=== PATIENT | female | born 1985 | race Caucasian/White ===

== ENCOUNTER 2019-12-30 12:06 | Outpatient (REF) | payer OTHER, SELFPAY ==
[2019-12-30 13:41] LABS: MANUAL DIFF FLAG NO
[2019-12-30 13:57] LABS: Basophils Absolute Auto 0.1 X10*3/uL (0.0-0.2); Basophils Percent Auto 0.5 % (0-2); Eosinophils Absolute Auto 0.2 X10*3/uL (0.0-0.4); Eosinophils Percent Auto 2.1 % (0-4); Hematocrit 38.7 % (37-47); Hemoglobin 12.6 g/dl (12.0-16.0); Imm Gran Abs Auto 0.03 X10*3/uL (0.00-0.03); Imm Gran Pct Auto 0.3 % (0.0-0.4); Lymphocytes Absolute Auto 2.9 X10*3/uL (1.2-4.9); Mean Corpuscular HGB Conc 32.6 g/dl (31.0-35.0); Mean Corpuscular Hemoglobin 28.5 pg (27.0-33.0); Mean Corpuscular Volume 87.6 fL (80-98); Mean Platelet Volume 12.3 fL (9.4-12.3); Monocytes Absolute Auto 0.6 X10*3/uL (0.1-1.2); Monocytes Percent Auto 6.1 % (2-11); Neutrophils Absolute Auto 6.4 X10*3/uL (2.0-8.3); Platelet Count 243 X10*3/uL (160-400); Red Blood Count 4.42 X10*6/uL (4.20-5.50); White Blood Count 10.2 X10*3/uL (4.8-10.8)
[2019-12-30 14:14] LABS: Estimated Average Glucose 128 mg/dL; Hemoglobin A1c % 6.1 %
[2019-12-30 14:24] LABS: Anion Gap 15 (12-20); Blood Urea Nitrogen 17 mg/dL (9-16); Calcium 8.6 mg/dL (8.4-10.2); Carbon Dioxide 25 mmol/L (22-29); Chloride 105 mmol/L (96-108); Estimated Glomerular Filt Rate > 60; Glucose Random 111 mg/dL (60-115); Potassium 4.8 mmol/l (3.3-5.1); Sodium 140 mmol/L (135-145)
== END 2019-12-30 12:07 | disposition home or self-care (01) ==
LOC: HO.HMGCLDS 12:06
PROVIDERS: PCP Internal Medicine; Visit Provider Internal Medicine
DX: J45.909 Unspecified asthma, uncomplicated (principal); E66.9 Obesity, unspecified; I10 Essential (primary) hypertension
CPT/HCPCS: 36415; 80048; 83036; 85025

== ENCOUNTER 2020-04-20 16:28 | Outpatient (REF) | payer OTHER, SELFPAY | END 2020-04-20 16:29 | disposition home or self-care (01) | LOC: HO.LNP 16:28 | PROVIDERS: Visit Provider Hospitalist | DX: J45.21 Mild intermittent asthma with (acute) exacerbation (principal); Z20.822 Contact with and (suspected) exposure to COVID-19 | CPT/HCPCS: U0003; U0005 ==

== ENCOUNTER 2020-06-04 13:58 | Outpatient (REF) | payer OTHER, SELFPAY ==
--- NOTE | ~2020-06-04 | XR_ITS ---
EXAMINATION: XR CHEST CLINICAL INFORMATION: Shortness of breath COMPARISON: None TECHNIQUE: 2 views of the chest were obtained. FINDINGS: The lungs are well expanded. There is no focal consolidation, edema, or effusion. No pneumothorax. The cardiomediastinal silhouette is within normal limits. No acute osseous abnormality. XR/XR chest 2V IMPRESSION: Clear lungs.
== END 2020-06-04 13:59 | disposition home or self-care (01) ==
LOC: HO.HMGCX 13:58
PROVIDERS: PCP Internal Medicine; Visit Provider Hospitalist
DX: R06.02 Shortness of breath (principal)
CPT/HCPCS: 71046

== ENCOUNTER 2020-06-19 13:20 | Outpatient (REF) | payer OTHER, SELFPAY ==
[2020-06-19 14:22] LABS: Estimated Average Glucose 163 mg/dL; Hemoglobin A1c % 7.3 %
[2020-06-19 14:38] LABS: Alanine Aminotransferase 23 U/L (0-31); Albumin Level 4.1 g/dL (3.5-5.0); Alkaline Phosphatase 63 U/L (39-117); Anion Gap 16 (12-20); Aspartate Amino Transferase 12 U/L (5-31); Bilirubin Direct 0.2 mg/dL (0.0-0.5); Bilirubin Total 0.6 mg/dL (0.0-1.0); Blood Urea Nitrogen 18 mg/dL (9-16); Calcium 9.9 mg/dL (8.4-10.2); Carbon Dioxide 26 mmol/L (22-29); Chloride 103 mmol/L (96-108); Estimated Glomerular Filt Rate > 60; Glucose Random 175 mg/dL (60-115); Sodium 140 mmol/L (135-145); Total Protein 7.2 g/dL (6.5-8.0)
[2020-06-19 15:00] LABS: Creatinine Urine 76.83 mg/dL; Microalbum/Creatinine Ratio Ur 6.5 ug/mg cr
== END 2020-06-19 13:21 | disposition home or self-care (01) ==
LOC: HO.HMGCLDS 13:20
PROVIDERS: PCP Internal Medicine; Visit Provider Internal Medicine
DX: L70.9 Acne, unspecified (principal); R73.03 Prediabetes; J45.909 Unspecified asthma, uncomplicated; I10 Essential (primary) hypertension; E66.9 Obesity, unspecified
CPT/HCPCS: 36415; 80053; 80076; 82043; 82248; 83036

== ENCOUNTER 2020-09-18 12:25 | Outpatient (REF) | payer OTHER, SELFPAY ==
[2020-09-18 13:45] LABS: MANUAL DIFF FLAG NO
[2020-09-18 13:49] LABS: Basophils Absolute Auto 0.1 X10*3/uL (0.0-0.2); Basophils Percent Auto 0.5 % (0-2); Eosinophils Absolute Auto 0.2 X10*3/uL (0.0-0.4); Eosinophils Percent Auto 1.9 % (0-4); Hematocrit 39.7 % (37-47); Imm Gran Abs Auto 0.03 X10*3/uL (0.00-0.03); Imm Gran Pct Auto 0.3 % (0.0-0.4); Lymphocytes Absolute Auto 3.4 X10*3/uL (1.2-4.9); Lymphocytes Percent Auto 32.7 % (20-40); Mean Corpuscular HGB Conc 32.7 g/dl (31.0-35.0); Mean Corpuscular Hemoglobin 28.1 pg (27.0-33.0); Mean Corpuscular Volume 85.7 fL (80-98); Mean Platelet Volume 11.9 fL (9.4-12.3); Monocytes Absolute Auto 0.7 X10*3/uL (0.1-1.2); Monocytes Percent Auto 6.7 % (2-11); Neutrophils Percent Auto 57.9 % (45-73); Platelet Count 293 X10*3/uL (160-400); Red Blood Count 4.63 X10*6/uL (4.20-5.50); Red Cell Distribution Width 12.5 % (11.0-16.0); White Blood Count 10.3 X10*3/uL (4.8-10.8)
[2020-09-18 14:04] LABS: Estimated Average Glucose 148 mg/dL; Hemoglobin A1c % 6.8 %
[2020-09-18 14:08] LABS: Alanine Aminotransferase 20 U/L (0-31); Alkaline Phosphatase 65 U/L (39-117); Anion Gap 15 (12-20); Aspartate Amino Transferase 14 U/L (5-31); Bilirubin Total 0.7 mg/dL (0.0-1.0); Blood Urea Nitrogen 12 mg/dL (9-16); Calcium 9.7 mg/dL (8.4-10.2); Carbon Dioxide 26 mmol/L (22-29); Chloride 103 mmol/L (96-108); Estimated Glomerular Filt Rate > 60; Glucose Random 118 mg/dL (60-115); Potassium 4.7 mmol/L (3.3-5.1); Sodium 139 mmol/L (135-145); Total Protein 7.3 g/dL (6.5-8.0)
[2020-09-19 11:09] LABS: LDL Cholesterol Direct 158 mg/dL (<100)
== END 2020-09-18 12:26 | disposition home or self-care (01) ==
LOC: HO.HMGCLDS 12:25
PROVIDERS: PCP Internal Medicine; Visit Provider Internal Medicine
DX: Z00.01 Encounter for general adult medical examination with abnormal findings (principal); I10 Essential (primary) hypertension; L70.9 Acne, unspecified; J45.909 Unspecified asthma, uncomplicated; R73.03 Prediabetes; E66.9 Obesity, unspecified
CPT/HCPCS: 36415; 80053; 83036; 83721; 85025

== ENCOUNTER 2020-11-16 13:38 | Outpatient (REF) | payer OTHER, SELFPAY ==
[2020-11-21 22:03] LABS: HPV mRNA E6/E7 rflx Not Detected (Not Detected)
== END 2020-11-16 13:39 | disposition home or self-care (01) ==
LOC: HO.LAB 13:38
PROVIDERS: Visit Provider Advanced Practice Midwife
DX: Z01.419 Encounter for gynecological examination (general) (routine) without abnormal findings (principal); E66.9 Obesity, unspecified; L70.9 Acne, unspecified; Z86.16 Personal history of COVID-19; Z68.43 Body mass index [BMI] 50.0-59.9, adult
CPT/HCPCS: 87624; 88142

== ENCOUNTER 2020-11-22 14:06 | Outpatient (REF) | payer OTHER, SELFPAY | END 2020-11-22 14:07 | disposition home or self-care (01) | LOC: HO.LNP 14:06 | PROVIDERS: Visit Provider Physician Assistant Medical | DX: Z20.822 Contact with and (suspected) exposure to COVID-19 (principal); J02.9 Acute pharyngitis, unspecified | CPT/HCPCS: 87071; U0003; U0005 ==

== ENCOUNTER 2021-01-22 12:17 | Outpatient (REF) | payer OTHER, SELFPAY ==
[2021-01-22 13:49] LABS: MANUAL DIFF FLAG NO
[2021-01-22 14:01] LABS: Basophils Percent Auto 0.4 % (0-2); Eosinophils Absolute Auto 0.2 X10*3/uL (0.0-0.4); Hematocrit 38.6 % (37.0-47.0); Hemoglobin 12.6 g/dl (12.0-16.0); Imm Gran Abs Auto 0.03 X10*3/uL (0.00-0.03); Imm Gran Pct Auto 0.3 % (0.0-0.4); Lymphocytes Absolute Auto 2.8 X10*3/uL (1.2-4.9); Lymphocytes Percent Auto 28.3 % (20-40); Mean Corpuscular HGB Conc 32.6 g/dl (31.0-35.0); Mean Corpuscular Hemoglobin 27.8 pg (27.0-33.0); Mean Corpuscular Volume 85.2 fL (80.0-98.0); Mean Platelet Volume 12.3 fL (9.4-12.3); Monocytes Absolute Auto 0.7 X10*3/uL (0.1-1.2); Monocytes Percent Auto 6.7 % (2-11); Neutrophils Absolute Auto 6.2 x10*3/uL (2.0-8.3); Neutrophils Percent Auto 62.3 % (45-73); Platelet Count 248 X10*3/uL (160-400); Red Blood Count 4.53 X10*6/uL (4.20-5.50)
[2021-01-22 14:16] LABS: Estimated Average Glucose 140 mg/dL; Hemoglobin A1c % 6.5 %
[2021-01-22 14:25] LABS: Alanine Aminotransferase 22 U/L (0-31); Alkaline Phosphatase 66 U/L (39-117); Anion Gap 14 (12-20); Aspartate Amino Transferase 12 U/L (5-31); Bilirubin Total 0.4 mg/dL (0.0-1.0); Blood Urea Nitrogen 14 mg/dL (9-16); Calcium 9.5 mg/dL (8.4-10.2); Carbon Dioxide 25 mmol/L (22-29); Chloride 106 mmol/L (96-108); Estimated Glomerular Filt Rate > 60; Glucose Fasting 115 mg/dL (60-99); Potassium 4.7 mmol/L (3.3-5.1); Sodium 140 mmol/L (135-145); Total Protein 7.4 g/dL (6.5-8.0)
[2021-01-22 14:37] LABS: Creatinine Urine 66.42 mg/dL; Microalbumin Urine < 5.0 mg/L
== END 2021-01-22 12:18 | disposition home or self-care (01) ==
LOC: HO.HMGCLDS 12:17
PROVIDERS: Visit Provider Internal Medicine
DX: Z00.01 Encounter for general adult medical examination with abnormal findings (principal); E66.01 Morbid (severe) obesity due to excess calories; E13.9 Other specified diabetes mellitus without complications; L70.9 Acne, unspecified; I10 Essential (primary) hypertension; J45.40 Moderate persistent asthma, uncomplicated
CPT/HCPCS: 36415; 80048; 80053; 82043; 83036; 85025

== ENCOUNTER → 2021-05-10 13:52 | Outpatient (BNVA) | payer OTHER, SELFPAY | PROVIDERS: PCP Internal Medicine; Visit Provider Advanced Practice Midwife | DX: Z30.41 Encounter for surveillance of contraceptive pills (principal) | CPT/HCPCS: 99212 ==

== ENCOUNTER 2021-05-29 12:17 | Outpatient (REF) | payer OTHER, SELFPAY ==
[2021-05-29 13:58] LABS: Estimated Average Glucose 143 mg/dL; Hemoglobin A1c % 6.6 %
[2021-05-29 14:02] LABS: Alanine Aminotransferase 21 U/L (0-31); Alkaline Phosphatase 68 U/L (39-117); Anion Gap 11 (12-20); Aspartate Amino Transferase 13 U/L (5-31); Bilirubin Total 0.8 mg/dL (0.0-1.0); Blood Urea Nitrogen 13 mg/dL (9-16); Calcium 9.5 mg/dL (8.4-10.2); Carbon Dioxide 29 mmol/L (22-29); Chloride 103 mmol/L (96-108); Estimated Glomerular Filt Rate > 60; Glucose Random 120 mg/dL (60-115); Potassium 4.8 mmol/L (3.3-5.1); Sodium 138 mmol/L (135-145); Total Protein 7.3 g/dL (6.5-8.0)
[2021-05-29 14:12] LABS: Creatinine Urine 62.98 mg/dL
[2021-05-29 14:30] LABS: Microalbum/Creatinine Ratio Ur 20.6 ug/mg cr
[2021-05-30 20:56] LABS: LDL Cholesterol Direct 154 mg/dL (<100)
== END 2021-05-29 12:18 | disposition home or self-care (01) ==
LOC: HO.HMGCLDS 12:17
PROVIDERS: PCP Internal Medicine; Visit Provider Internal Medicine
DX: I10 Essential (primary) hypertension (principal); E13.9 Other specified diabetes mellitus without complications; J45.40 Moderate persistent asthma, uncomplicated; E66.01 Morbid (severe) obesity due to excess calories; L70.9 Acne, unspecified
CPT/HCPCS: 36415; 80053; 82043; 83036; 83721

== ENCOUNTER 2021-09-20 12:41 | Outpatient (REF) | payer OTHER, SELFPAY ==
[2021-09-20 14:02] LABS: Estimated Average Glucose 160 mg/dL; Hemoglobin A1c % 7.2 %
[2021-09-20 14:04] LABS: Alanine Aminotransferase 23 U/L (0-31); Alkaline Phosphatase 65 U/L (39-117); Anion Gap 13 (12-20); Aspartate Amino Transferase 19 U/L (5-31); Bilirubin Total 0.7 mg/dL (0.0-1.0); Blood Urea Nitrogen 12 mg/dL (9-16); Calcium 9.3 mg/dL (8.4-10.2); Carbon Dioxide 24 mmol/L (22-29); Chloride 105 mmol/L (96-108); Estimated Glomerular Filt Rate > 60; Glucose Random 146 mg/dL (60-115); Potassium 4.3 mmol/L (3.3-5.1); Sodium 138 mmol/L (135-145); Total Protein 7.4 g/dL (6.5-8.0)
[2021-09-20 14:09] LABS: Creatinine Urine 80.87 mg/dL; Microalbumin Urine < 5.0 mg/L
== END 2021-09-20 12:42 | disposition home or self-care (01) ==
LOC: HO.HMGCLDS 12:41
PROVIDERS: PCP Internal Medicine; Visit Provider Internal Medicine
DX: Z00.01 Encounter for general adult medical examination with abnormal findings (principal); E13.9 Other specified diabetes mellitus without complications; E66.01 Morbid (severe) obesity due to excess calories; J45.40 Moderate persistent asthma, uncomplicated; I10 Essential (primary) hypertension
CPT/HCPCS: 36415; 80053; 82043; 83036

== ENCOUNTER 2021-12-20 12:01 | Outpatient (REF) | payer OTHER, SELFPAY ==
[2021-12-20 12:30] LABS: Binax Internal Control QC Valid; Binax Now Covid-19 Ag Negative (Negative)
== END 2021-12-20 12:02 | disposition home or self-care (01) ==
LOC: HO.HMGCLDS 12:01
PROVIDERS: PCP Internal Medicine; Visit Provider Internal Medicine
DX: J06.9 Acute upper respiratory infection, unspecified (principal); Z20.822 Contact with and (suspected) exposure to COVID-19
CPT/HCPCS: 87811; C9803

== ENCOUNTER 2022-01-22 10:29 | Outpatient (REF) | payer OTHER, SELFPAY ==
[2022-01-22 11:16] LABS: MANUAL DIFF FLAG NO
[2022-01-22 11:35] LABS: Basophils Absolute Auto 0.1 X10*3/uL (0.0-0.2); Basophils Percent Auto 0.6 % (0-2); Eosinophils Absolute Auto 0.4 X10*3/uL (0.0-0.4); Eosinophils Percent Auto 3.1 % (0-4); Hematocrit 39.4 % (37.0-47.0); Hemoglobin 12.7 g/dl (12.0-16.0); Imm Gran Abs Auto 0.03 X10*3/uL (0.00-0.03); Imm Gran Pct Auto 0.3 % (0.0-0.4); Lymphocytes Absolute Auto 3.3 X10*3/uL (1.2-4.9); Lymphocytes Percent Auto 28.4 % (20-40); Mean Corpuscular HGB Conc 32.2 g/dl (31.0-35.0); Mean Corpuscular Hemoglobin 27.1 pg (27.0-33.0); Mean Corpuscular Volume 84.2 fL (80.0-98.0); Mean Platelet Volume 11.9 fL (9.4-12.3); Monocytes Absolute Auto 0.8 X10*3/uL (0.1-1.2); Neutrophils Absolute Auto 7.1 x10*3/uL (2.0-8.3); Neutrophils Percent Auto 60.6 % (45-73); Platelet Count 266 X10*3/uL (160-400); Red Blood Count 4.68 X10*6/uL (4.20-5.50); Red Cell Distribution Width 13.3 % (11.0-16.0); White Blood Count 11.7 X10*3/uL (4.8-10.8)
[2022-01-22 11:46] LABS: Alanine Aminotransferase 29 U/L (0-31); Albumin Level 4.3 g/dL (3.5-5.0); Alkaline Phosphatase 87 U/L (39-117); Anion Gap 15 (12-20); Aspartate Amino Transferase 20 U/L (5-31); Bilirubin Total 0.7 mg/dL (0.0-1.0); Blood Urea Nitrogen 15 mg/dL (9-16); Calcium 9.6 mg/dL (8.4-10.2); Carbon Dioxide 28 mmol/L (22-29); Chloride 103 mmol/L (96-108); Cholesterol 170 mg/dL; Estimated Glomerular Filt Rate > 60; Glucose Fasting 163 mg/dL (60-99); HDL Cholesterol 48 mg/dL; LDL Cholesterol Calculated 99 mg/dl; Potassium 4.6 mmol/L (3.3-5.1); Sodium 141 mmol/L (135-145); Total Protein 7.6 g/dL (6.5-8.0); Triglycerides 117 mg/dL
[2022-01-22 11:47] LABS: Estimated Average Glucose 197 mg/dL; Hemoglobin A1c % 8.5 %
== END 2022-01-22 10:30 | disposition home or self-care (01) ==
LOC: HO.HMGCLDS 10:29
PROVIDERS: PCP Internal Medicine; Visit Provider Internal Medicine
DX: E13.9 Other specified diabetes mellitus without complications (principal); E66.01 Morbid (severe) obesity due to excess calories; J45.40 Moderate persistent asthma, uncomplicated; L70.9 Acne, unspecified; I10 Essential (primary) hypertension
CPT/HCPCS: 36415; 80053; 80061; 83036; 85025

== ENCOUNTER → 2022-03-27 11:18 | Outpatient (BNVA) | payer OTHER, SELFPAY | PROVIDERS: PCP Internal Medicine; Visit Provider Advanced Practice Midwife | DX: Z51.81 Encounter for therapeutic drug level monitoring (principal); Z30.40 Encounter for surveillance of contraceptives, unspecified | CPT/HCPCS: 99212 ==

== ENCOUNTER 2022-07-02 10:44 | Outpatient (REF) | payer OTHER, SELFPAY ==
[2022-07-02 14:01] LABS: MANUAL DIFF FLAG NO
[2022-07-02 14:18] LABS: Estimated Average Glucose 120 mg/dL; Hemoglobin A1c % 5.8 %
[2022-07-02 14:27] LABS: Basophils Absolute Auto 0.1 X10*3/uL (0.0-0.2); Basophils Percent Auto 0.7 % (0-2); Eosinophils Absolute Auto 0.2 X10*3/uL (0.0-0.4); Eosinophils Percent Auto 2.3 % (0-4); Hematocrit 39.9 % (37.0-47.0); Hemoglobin 13.1 g/dl (12.0-16.0); Imm Gran Abs Auto 0.02 X10*3/uL (0.00-0.03); Imm Gran Pct Auto 0.2 % (0.0-0.4); Lymphocytes Absolute Auto 2.5 X10*3/uL (1.2-4.9); Mean Corpuscular HGB Conc 32.8 g/dl (31.0-35.0); Mean Corpuscular Hemoglobin 27.3 pg (27.0-33.0); Mean Corpuscular Volume 83.1 fL (80.0-98.0); Mean Platelet Volume 12.8 fL (9.4-12.3); Monocytes Absolute Auto 0.6 X10*3/uL (0.1-1.2); Monocytes Percent Auto 7.1 % (2-11); Neutrophils Absolute Auto 5.6 x10*3/uL (2.0-8.3); Neutrophils Percent Auto 61.7 % (45-73); Platelet Count 223 X10*3/uL (160-400); Red Cell Distribution Width 14.3 % (11.0-16.0); White Blood Count 9.1 X10*3/uL (4.8-10.8)
[2022-07-02 14:31] LABS: Alanine Aminotransferase 77 U/L (0-31); Albumin Level 4.4 g/dL (3.5-5.0); Alkaline Phosphatase 76 U/L (39-117); Anion Gap 15 (12-20); Aspartate Amino Transferase 34 U/L (5-31); Bilirubin Total 1.4 mg/dL (0.0-1.0); Blood Urea Nitrogen 11 mg/dL (9-16); Calcium 9.7 mg/dL (8.4-10.2); Carbon Dioxide 26 mmol/L (22-29); Chloride 105 mmol/L (96-108); Cholesterol 155 mg/dL; Estimated Glomerular Filt Rate > 60; Glucose Fasting 96 mg/dL (60-99); Glucose Random 96 mg/dL (60-115); HDL Cholesterol 44 mg/dL; LDL Cholesterol Calculated 93 mg/dl; Potassium 4.6 mmol/L (3.3-5.1); Sodium 141 mmol/L (135-145); Total Protein 7.3 g/dL (6.5-8.0); Triglycerides 91 mg/dL
== END 2022-07-02 10:45 | disposition home or self-care (01) ==
LOC: HO.HMGCLDS 10:44
PROVIDERS: PCP Internal Medicine; Visit Provider Internal Medicine
DX: E13.9 Other specified diabetes mellitus without complications (principal); E66.01 Morbid (severe) obesity due to excess calories; J45.40 Moderate persistent asthma, uncomplicated; I10 Essential (primary) hypertension
CPT/HCPCS: 36415; 80053; 80061; 83036; 85025

== ENCOUNTER 2022-11-27 10:08 | Outpatient (REF) | payer OTHER, SELFPAY | END 2022-11-27 10:09 | disposition home or self-care (01) | LOC: HO.LNP 10:08 | PROVIDERS: Visit Provider Advanced Practice Midwife | DX: Z01.419 Encounter for gynecological examination (general) (routine) without abnormal findings (principal); Z20.2 Contact with and (suspected) exposure to infections with a predominantly sexual mode of transmission | CPT/HCPCS: 99395 ==

== ENCOUNTER 2022-11-27 10:08 | Outpatient (AMB) | payer OTHER, SELFPAY ==
--- NOTE | 2022-11-27 10:09 | A.OFFVIS_ITS ---
Intake Vital Signs 11/27/22 10:10 Height 5 ft 3 in Weight 282 lb BMI 49.9 BP 116/76 Intake Visit Reasons: Annual Intake Note: The patient agreed to use of a medical office professional instructor during this encounter. Scribed for URIEL Loera by Meri Kaufman medical office professional instructor, on 11/27/2022. Vehicle Cost Engineer: Vehicle Cost Engineer Present (Mcaey) Allergies No Known Allergies Allergy (Verified 11/27/22 10:10) Is last menstrual period known: Yes Last menstrual period: 11/13/22 HPI HPI Comments History of Present Illness Details She is a premenopausal woman presenting for annual exam. Doing well with no equipment oiler concerns. She admits to eating healthy and tries to stay active with exercise. Currently sexually active. Denies vaginal itching and irritation. STD screening and blood work offered; she accepts. Denies family hx of breast, colon and ovarian cancer. Last pap smear 11/16/20. She denies any contraindications to control such as: migraines with aura, history of DVT or pulmonary emboli, high blood pressure, liver disease, thrombolic disorders, Lupus, +MAGGIE, or smoking. FORMERLY [facility], [facility] Medical History Obesity Contact dermatitis Hypertension, essential Surgical History No pertinent past surgical history Family History Father No problems noted. Mother Back injury Substance use disorder Maternal Grandfather No problems noted. Maternal Grandmother HTN (hypertension) Diabetes mellitus Paternal Grandfather No problems noted. Brother No problems noted. Brother No problems noted. Sister No problems noted. Sister No problems noted. Sister No problems noted. Social History Household Members: None Housing: Apartment Alcohol intake: current Alcohol intake frequency: holidays/special occasions only Patient Tobacco Use Status: Never used Tobacco e-Cigarette/Vaping Use: Never Used Second Hand Smoke Exposure: No Current occupational status: employed Current occupation: [employer] / [employer] Sexual orientation: Straight/Heterosexual Gender identity: Female Cognitive needs: No Hearing needs: No Vision needs: No Female Reproductive History Menstrual Date of last menstrual period: 11/13/22 control method: pills Total pregnancies: 0 Date of last pap smear: 11/16/20 (neg pap and hpv) Physical Exam Vital Signs: Last Vital Signs BP 116/76 11/27/22 10:10 BMI result Body Mass Index 49.9 Const General: cooperative, healthy appearing, no acute distress, well developed and alert Orientation/consciousness: patient oriented x3 HEENT Head: Yes normal to inspection Eyes General: appearance normal, both eyes and all related structures Neck Neck: Yes normal visual inspection Thyroid: Thyroid normal Chest Chest palpation & inspection: normal inspection of the chest Breast/axilla inspection: normal inspection of the breasts (no puckering, dimpling, peau de orange, retraction, discharge, masses) Breast/axilla palpation: normal palpation of the breasts Resp Effort & Inspection: normal respiratory effort GI Inspection: Yes normal to inspection and Yes obesity Palpation (GI): Soft to palpation (to palpation) Rectal Exam - Female: deferred General: Yes bladder normal to inspection External Female Exam: normal external appearance and normal appearance of the urethra Speculum Exam - Vagina: normal appearance of the vagina, normal palpation and normal vaginal discharge Speculum Exam - Cervix: normal appearance of the cervix and normal palpation Bimanual exam- vagina & uterus: normal palpation and normal palpation Bimanual Exam- Adnexa, other: normal adnexae and no masses Skin General skin exam: no rashes or lesions noted Neuro General: patient oriented x3 Cognition (Neuro): normal cognition Extrem General: Yes normal to inspection Psych Attitude: cooperative Thought process: Normal thought process present Assessment & Plan Assessment & Plan (1) Encounter for well woman exam: Code(s): Z01.419 - Encounter for gynecological examination (general) (routine) without abnormal findings Plan: Discussed: Current recommendations for pap smears per ASCCP guidelines. Breast awareness and periodic self breast exams. Maintaining a healthy lifestyle including a well balanced diet and routine exercise. All of her questions and concerns were addressed to the best of my ability. RTO in one year for AG. (2) control counseling: Code(s): Z30.09 - Encounter for other general counseling and advice on contraception Plan: Continue Twila. Monitor her bleeding and contact the office with any concerns. Use condoms as back up plan to prevent . She was instructed to go to ER if she develops loss of vision, severe headache that does not resolve, chest pain, difficulty breathing, abdominal pain, or pain or tenderness in extremity. Call the office with any concerns. (3) Potential exposure to STD: Code(s): Z20.2 - Contact with and (suspected) exposure to infections with a predominantly sexual mode of transmission Plan: GC/CT panel today. STD blood work ordered. Await results and treat accordingly. Orders: Orders CT NG by PCR Today Z20.2 - Contact with and (suspected) exposure to infections with a predominantly sexual mode of transmission Medications: Refilled norethindrone (contraceptive) (Twila) 0.35 mg PO DAILY PRN 90 tabs 4RF ocp 90 days Coding Level of Care Code Est Pt Prev Care 18-39y(45592) Diagnoses Encounter for well woman exam Z01.419 control counseling Z30.09 Potential exposure to STD Z20.2
[2022-11-27 10:10] VITALS: BP 116/76; BMI 49.9
== END 2022-11-27 10:55 | disposition home or self-care (01) ==
PROVIDERS: Visit Provider Advanced Practice Midwife
DX: Z01.419 Encounter for gynecological examination (general) (routine) without abnormal findings (principal); Z30.09 Encounter for other general counseling and advice on contraception; Z20.2 Contact with and (suspected) exposure to infections with a predominantly sexual mode of transmission
CPT/HCPCS: 99395

== ENCOUNTER 2022-11-27 11:03 | Outpatient (REF) | payer OTHER, SELFPAY ==
[2022-11-27 17:19] LABS: CT PCR NOT DETECTED (Not Detect.); NG PCR NOT DETECTED (Not Detect.)
== END 2022-11-27 11:04 | disposition home or self-care (01) ==
LOC: HO.LAB 11:03
PROVIDERS: PCP Internal Medicine; Visit Provider Advanced Practice Midwife
DX: Z02.2 Encounter for examination for admission to residential institution (principal)
CPT/HCPCS: 0353U

== ENCOUNTER 2023-01-14 08:25 | Outpatient (AMB) | payer OTHER, SELFPAY ==
--- NOTE | 2023-01-14 08:31 | A.OFFPC_ITS ---
Vital Signs 01/14/23 08:32 Height 5 ft 3 in Weight 287 lb BMI 50.8 BP 100/74 Blood Pressure Location Lt brachial Position Sitting Pulse 85 Pulse Source Pulse Oximeter Pulse Oximetry (%) 99 Oxygen Delivery Method Room Air Intake Visit Reasons: 4 month F/U CX 11/07 and R/S Allergies No Known Allergies Allergy (Verified 01/14/23 08:33) Medication List - Last Reconciled 01/14/23 by Krystle Ocasio MD albuterol sulfate 90 mcg/actuation (ProAir HFA) 1 inh inhalation QID PRN 30 days atorvastatin 20 mg PO DAILY 90 days budesonide-formoterol 80-4.5 mcg/actuation (Symbicort) 1 inh inhalation BID metformin 1,000 mg PO BID 90 days metronidazole 0.75% 1 appl topical BID norethindrone (contraceptive) (Twila) 0.35 mg PO DAILY PRN 90 days spironolactone 50 mg PO DAILY tretinoin 0.1% 1 appl topical BEDTIME Tobacco use date assessed: 07/02/22 Dental Screening Dental Screen Date: 01/14/23 Did you have a dental visit in the last 12 months?: No Was dental information given to patient?: Patient declined HPI 4 month F/U CX 11/07 and R/S HPI Details Patient is 37-year-old female came in today for her regular follow-up visit Patient got sick with strep infection so she had to cancel her last follow-up appointment Diabetes mellitus: Currently patient is on metformin 1 g b.i.d. she is due for hemoglobin A1c, tolerating medication no side effects Due for labs today Lipid disorder: Continue atorvastatin 20 mg daily Asthma is stable, patient is on Symbicort inhaler she is taking spironolactone for acne, through telephone clerk control through OBGYN She has appointment for physical exam in April Her BMI is above 50, she is gradually losing weight [facility] Medical History Obesity Contact dermatitis Hypertension, essential Surgical History No pertinent past surgical history Family History Father No problems noted. Mother Back injury Substance use disorder Maternal Grandfather No problems noted. Maternal Grandmother HTN (hypertension) Diabetes mellitus Paternal Grandfather No problems noted. Brother No problems noted. Brother No problems noted. Sister No problems noted. Sister No problems noted. Sister No problems noted. Social History Household Members: None Housing: Apartment Alcohol intake: current Alcohol intake frequency: holidays/special occasions only Patient Tobacco Use Status: Never used Tobacco e-Cigarette/Vaping Use: Never Used Second Hand Smoke Exposure: No Current occupational status: employed Current occupation: [employer] Sexual orientation: Straight/Heterosexual Gender identity: Female Cognitive needs: No Hearing needs: No Vision needs: No Questionnaire PHQ-9 Over the last 2 weeks, how often have you been bothered by any of the following problems? 1. Little interest or pleasure in doing things: not at all 2. Feeling down, depressed, or hopeless: not at all 3. Trouble falling or staying asleep, or sleeping too much: not at all 4. Feeling tired or having little energy: not at all 5. Poor appetite or overeating: not at all 6. Feeling bad about yourself - or that you are a failure or have let yourself or your family down: not at all 7. Trouble concentrating on things, such as reading the newspaper or watching television: not at all 8. Moving or speaking so slowly that other people could have noticed. Or the opposite - being so fidgety or restless that you have been moving around a lot more than usual: not at all 9. Thoughts that you would be better off or of hurting yourself in some way: not at all Total score: 0 Depression Screening Interpretation: Negative Depression Screening Done: Yes 30629 - PHQ-9 Billing: Yes Source: Developed by Drs. Rell Trivedi, Nalini Abel, Dilip Solo and colleagues, with an educational karson from [employer]. Thrive Questionnaire Date Thrive assessed: 01/14/23 I am a: Patient What is your living situation today?: I have a steady place to live Within the past 12 months, did the food you bought not last and you didn't have the money to get more?: Never true Within the past 12 months, did you worry whether your food would run out before you got money to buy more?: Never true Do you have trouble paying for medicines?: No Do you have trouble getting transportation to medical appointments?: No Do you have trouble paying your heating and electricity bill?: No Do you have trouble taking care of your child, family member or friend?: No Do you have trouble with day-to-day activities such as bathing, preparing meals, shopping, managing finances, etc.?: No Are you currently unemployed and looking for a job?: No Are you interested in more education?: No Please select the resources that you would like help with: None Currently or been in a relationship where the following occur: no concerns reported BARRY-7 AMB Questionnaire BARRY-7 Date BARRY - 7 assessed: 01/14/23 Feeling nervous, anxious, or on edge: 0 = Not at all Not being able to stop or control worryin = Not at all Worrying too much about different things: 0 = Not at all Trouble relaxin = Not at all Being so restless that it is hard to sit still: 0 = Not at all Becoming easily annoyed or irritable: 0 = Not at all Feeling afraid as if something awful might happen: 0 = Not at all Total BARRY-7 score (0-4 normal; 5-9 mild; 10-14 moderate; 15-21 severe): 0 Source: Developed by Drs. Rell Trivedi, Nalini Abel, Dilip Solo and colleagues, with an educational karson from [employer]. BARRY-7 Assessment Billing BARRY-7 Assessment Tool: BARRY-7 Assessment 03630 Review of Systems Const Denies chills and Denies fever(s) ENT Denies epistaxis and Denies nasal discharge Card Denies chest pain Resp Denies chest congestion, Denies cough and Denies hemoptysis GI Denies diarrhea and Denies nausea Skin/Breast Denies rash Neuro Reports no additional complaints Psych Reports no additional complaints Endo Reports no additional complaints Physical exam (Primary Care) Vital Signs: Last Vital Signs Pulse 85 01/14/23 08:32 BP 100/74 01/14/23 08:32 Pulse Ox 99 01/14/23 08:32 Oxygen Delivery Method Room Air 01/14/23 08:32 BMI result Body Mass Index 50.8 Tobacco/Smoking Status: Tobacco use Status Tobacco use date assessed 07/02/22 01/14/23 08:31 Patient Tobacco Use Status Never used Tobacco 01/14/23 08:31 e-Cigarette/Vaping Use Never Used 01/14/23 08:31 PHQ-9: PHQ-9 Score PHQ-9: Total score 0 01/14/23 08:51 Depression Screening Interpretation: Negative Thrive Assessment: Date of Thrive Assessment Date Thrive assessed 01/14/23 01/14/23 08:36 Currently or been in a relationship where the following occur: no concerns reported Const General: cooperative, comfortable and no acute distress Orientation/consciousness: patient oriented x3 HENMT Head: Yes normocephalic Eyes General: appearance normal, both eyes and all related structures Neck Neck: Yes supple Resp Effort & Inspection: normal respiratory effort, no cough and no stridor Cardio Rhythm: regular rhythm Heart sounds: S1 normal heart sound present and S2 normal heart sound present Skin General skin exam: turgor normal Neuro General: patient oriented x3, tone normal and moves all extremities Extrem Right lower extremity: no edema Left lower extremity: no edema Office Procedures Flu Questionnaire Does the patient have a severe egg allergy?: No Does the patient have severe life threatening allergies?: No Has the patient ever had Guillain-Pike Syndrome?: No Has the patient ever had any past reaction to a flu shot?: No Immunizations flu vacc [id number] 6mos up(PF) 60 mcg(15 mcgx4)/0.5 mL IM syringe Performing Provider: Krystle Ocasio MD Performing Location: [facility] Administered by: CHINYERE Uriostegui on 01/14/23 08:52 Dose Route Admin Location Dispensed Lot Number Expiration Date NDC [employer] 0.5 mL IM Left Deltoid 0.5 mL [id number] 08/30/23 [id number] Property Partner VIS Given Date VIS Provided VIS Publication Date 01/14/23 Single Vaccine 20 Eligibility Eligibility Date Funding Source Not [facility] Eligible 01/14/23 Private Assessment and Plan Assessment & Plan (1) Hypertension, essential: Code(s): I10 - Essential (primary) hypertension (2) Diabetes mellitus type 2 in obese: Code(s): E11.69 - Type 2 diabetes mellitus with other specified complication; E66.9 - Obesity, unspecified (3) Asthma, moderate persistent: Code(s): J45.40 - Moderate persistent asthma, uncomplicated Qualifiers: Asthma complication type: uncomplicated Qualified Code(s): J45.40 - Moderate persistent asthma, uncomplicated (4) Morbid obesity due to excess calories: Code(s): E66.01 - Morbid (severe) obesity due to excess calories (5) Acne: Code(s): L70.9 - Acne, unspecified Qualifiers: Acne type: unspecified acne Qualified Code(s): L70.9 - Acne, unspecified Plan Patient is 37-year-old female came in today for her regular follow-up visit Patient got sick with strep infection so she had to cancel her last follow-up appointment Diabetes mellitus: Currently patient is on metformin 1 g b.i.d. she is due for hemoglobin A1c, tolerating medication no side effects Due for labs today Lipid disorder: Continue atorvastatin 20 mg daily Asthma is stable, patient is on Symbicort inhaler she is taking spironolactone for acne, through telephone clerk control through OBGYN She has appointment for physical exam in April Her BMI is above 50, she is gradually losing weight Orders: Orders Hemoglobin A1c Today E11.69 - Type 2 diabetes mellitus with other specified complication, E66.01 - Morbid (severe) obesity due to excess calories, E66.9 - Obesity, unspecified, I10 - Essential (primary) hypertension, J45.40 - Moderate persistent asthma, uncomplicated Comprehensive Met. Panel Today E11.69 - Type 2 diabetes mellitus with other specified complication, E66.01 - Morbid (severe) obesity due to excess calories, E66.9 - Obesity, unspecified, I10 - Essential (primary) hypertension, J45.40 - Moderate persistent asthma, uncomplicated LDL Cholesterol Direct Today E11.69 - Type 2 diabetes mellitus with other specified complication, E66.01 - Morbid (severe) obesity due to excess calories, E66.9 - Obesity, unspecified, I10 - Essential (primary) hypertension, J45.40 - Moderate persistent asthma, uncomplicated Microalbumin, Random (w Creat) Today E11.69 - Type 2 diabetes mellitus with other specified complication, E66.01 - Morbid (severe) obesity due to excess calories, E66.9 - Obesity, unspecified, I10 - Essential (primary) hypertension, J45.40 - Moderate persistent asthma, uncomplicated Complete Blood Count Auto Diff Today E11.69 - Type 2 diabetes mellitus with other specified complication, E66.01 - Morbid (severe) obesity due to excess rui ories, E66.9 - Obesity, unspecified, I10 - Essential (primary) hypertension, J45.40 - Moderate persistent asthma, uncomplicated Influenza [id number] Immunization Today Z23 - Encounter for immunization Coding Level of Care Code Est Pt Level 4 (66114) Diagnoses Hypertension, essential I10 Diabetes mellitus type 2 in obese E11.69; E66.9 Moderate persistent asthma without complication J45.40 Asthma complication type: uncomplicated Morbid obesity due to excess calories E66.01 Acne, unspecified acne type L70.9 Acne type: unspecified acne Additional Codes BARRY-7 Assessment Billing - BARRY-7 Assessment Tool: BARRY-7 Assessment [id number] ([id number])
[2023-01-14 08:32] VITALS: BP 100/74; PULSE 85; O2SAT 99; BMI 50.8
== END 2023-01-14 09:18 | disposition home or self-care (01) ==
PROVIDERS: PCP Internal Medicine; Visit Provider Internal Medicine
DX: E11.69 Type 2 diabetes mellitus with other specified complication (principal); E66.01 Morbid (severe) obesity due to excess calories; Z68.43 Body mass index [BMI] 50.0-59.9, adult; Z23 Encounter for immunization; I10 Essential (primary) hypertension; J45.40 Moderate persistent asthma, uncomplicated; L70.9 Acne, unspecified
CPT/HCPCS: 90471; 90686; 99214

== ENCOUNTER 2023-01-14 08:53 | Outpatient (REF) | payer OTHER, SELFPAY ==
[2023-01-14 11:14] LABS: MANUAL DIFF FLAG NO
[2023-01-14 12:01] LABS: Alanine Aminotransferase 13 U/L (0-31); Albumin Level 3.9 g/dL (3.5-5.0); Alkaline Phosphatase 64 U/L (39-117); Anion Gap 11 (12-20); Aspartate Amino Transferase 13 U/L (5-31); Bilirubin Total 0.6 mg/dL (0.0-1.0); Blood Urea Nitrogen 15 mg/dL (9-16); Calcium 9.2 mg/dL (8.4-10.2); Carbon Dioxide 28 mmol/L (22-29); Chloride 105 mmol/L (96-108); Estimated Glomerular Filt Rate > 60; Glucose Random 105 mg/dL (60-115); Potassium 4.3 mmol/L (3.3-5.1); Sodium 140 mmol/L (135-145); Total Protein 7.5 g/dL (6.5-8.0)
[2023-01-14 12:03] LABS: Basophils Absolute Auto 0.1 X10*3/uL (0.0-0.2); Basophils Percent Auto 0.6 % (0-2); Eosinophils Absolute Auto 0.3 X10*3/uL (0.0-0.4); Eosinophils Percent Auto 2.3 % (0-4); Hematocrit 37.9 % (37.0-47.0); Hemoglobin 12.4 g/dl (12.0-16.0); Imm Gran Abs Auto 0.13 X10*3/uL (0.00-0.03); Imm Gran Pct Auto 1.1 % (0.0-0.4); Lymphocytes Absolute Auto 2.7 X10*3/uL (1.2-4.9); Lymphocytes Percent Auto 23.6 % (20-40); Mean Corpuscular HGB Conc 32.7 g/dl (31.0-35.0); Mean Corpuscular Hemoglobin 28.1 pg (27.0-33.0); Mean Corpuscular Volume 85.9 fL (80.0-98.0); Mean Platelet Volume 12.8 fL (9.4-12.3); Monocytes Absolute Auto 0.7 X10*3/uL (0.1-1.2); Monocytes Percent Auto 6.4 % (2-11); Neutrophils Absolute Auto 7.6 x10*3/uL (2.0-8.3); Platelet Count 199 X10*3/uL (160-400); Red Blood Count 4.41 X10*6/uL (4.20-5.50); Red Cell Distribution Width 13.6 % (11.0-16.0); White Blood Count 11.5 X10*3/uL (4.8-10.8)
[2023-01-14 12:24] LABS: Creatinine Urine 48.22 mg/dL; Microalbumin Urine < 5.0 mg/L
[2023-01-14 12:46] LABS: Estimated Average Glucose 117 mg/dL; Hemoglobin A1c % 5.7 % (<6.0)
[2023-01-16 08:28] LABS: LDL Cholesterol Direct 85 mg/dL (<100)
== END 2023-01-14 08:54 | disposition home or self-care (01) ==
LOC: HO.HMGCLDS 08:53
PROVIDERS: PCP Internal Medicine; Visit Provider Internal Medicine
DX: I10 Essential (primary) hypertension (principal); E11.69 Type 2 diabetes mellitus with other specified complication; E66.9 Obesity, unspecified; J45.40 Moderate persistent asthma, uncomplicated; E66.01 Morbid (severe) obesity due to excess calories
CPT/HCPCS: 36415; 80053; 82043; 82570; 83036; 83721; 85025

== ENCOUNTER 2023-04-21 12:29 | Outpatient (AMB) | payer OTHER, SELFPAY ==
[2023-04-21 12:33] VITALS: BP 118/78; PULSE 87; O2SAT 98; BMI 52.8
--- NOTE | 2023-04-21 12:33 | MHC.PC.OV ---
Vital Signs 04/21/23 12:33 Height 5 ft 3 in Weight 298 lb BMI 52.8 BP 118/78 Blood Pressure Location Lt brachial Position Sitting Pulse 87 Pulse Source Pulse Oximeter Pulse Oximetry (%) 98 Oxygen Delivery Method Room Air Intake Visit Reasons: Annual PE Allergies No Known Allergies Allergy (Verified 04/21/23 12:36) Medication List - Last Reconciled 04/21/23 by Krystle Ocasio MD albuterol sulfate 90 mcg/actuation (ProAir HFA) 1 inh inhalation QID PRN 30 days atorvastatin 20 mg PO DAILY 90 days budesonide-formoterol 80-4.5 mcg/actuation (Symbicort) 1 inh inhalation BID metformin 1,000 mg PO BID 90 days metronidazole 0.75% 1 appl topical BID norethindrone (contraceptive) (Twila) 0.35 mg PO DAILY PRN 90 days spironolactone 50 mg PO DAILY tretinoin 0.1% 1 appl topical BEDTIME Tobacco use date assessed: 04/21/23 Dental Screening Dental Screen Date: 04/21/23 Did you have a dental visit in the last 12 months?: No Did you have a dental problem in the last 6 months where you did not have access to dental care?: No Was dental information given to patient?: Patient declined HPI Annual PE HPI Details Patient is 37-year-old female came in today for physical examination Has my stable, however she is mildly wheezing today at the end of inspiration Do not have any shortness a breath No cough Patient is established with OBGYN for Pap smear and breast exam She also sees Dermatology for management of acne and is getting spironolactone serotonin through them along with metronidazole topical BMI is elevated patient has difficulty losing weight Diabetes mellitus: Diet-controlled Due for labs Follow-up 4 months physical exam 1 year [facility] Medical History Obesity Contact dermatitis Hypertension, essential Surgical History No pertinent past surgical history Family History Father No problems noted. Mother Back injury Substance use disorder Maternal Grandfather No problems noted. Maternal Grandmother HTN (hypertension) Diabetes mellitus Paternal Grandfather No problems noted. Brother No problems noted. Brother No problems noted. Sister No problems noted. Sister No problems noted. Sister No problems noted. Social History Household Members: None Housing: Apartment Alcohol intake: current Alcohol intake frequency: holidays/special occasions only Patient Tobacco Use Status: Never used Tobacco e-Cigarette/Vaping Use: Never Used Second Hand Smoke Exposure: No Current occupational status: employed Current occupation: [employer] Sexual orientation: Straight/Heterosexual Gender identity: Female Cognitive needs: No Hearing needs: No Vision needs: No Questionnaire PHQ-9 Over the last 2 weeks, how often have you been bothered by any of the following problems? 1. Little interest or pleasure in doing things: not at all 2. Feeling down, depressed, or hopeless: not at all 3. Trouble falling or staying asleep, or sleeping too much: not at all 4. Feeling tired or having little energy: not at all 5. Poor appetite or overeating: not at all 6. Feeling bad about yourself - or that you are a failure or have let yourself or your family down: not at all 7. Trouble concentrating on things, such as reading the newspaper or watching television: not at all 8. Moving or speaking so slowly that other people could have noticed. Or the opposite - being so fidgety or restless that you have been moving around a lot more than usual: not at all 9. Thoughts that you would be better off or of hurting yourself in some way: not at all Total score: 0 Depression Screening Interpretation: Negative Depression Screening Done: Yes 95491 - PHQ-9 Billing: Yes Source: Developed by Drs. Rell Trivedi, Nalini Abel, Dilip Solo and colleagues, with an educational karson from [employer]. Thrive Questionnaire Date Thrive assessed: 01/14/23 BARRY-7 AMB Questionnaire BARRY-7 Date BARRY - 7 assessed: 01/14/23 Feeling nervous, anxious, or on edge: 0 = Not at all Not being able to stop or control worryin = Not at all Worrying too much about different things: 0 = Not at all Trouble relaxin = Not at all Being so restless that it is hard to sit still: 0 = Not at all Becoming easily annoyed or irritable: 0 = Not at all Feeling afraid as if something awful might happen: 0 = Not at all Total BARRY-7 score (0-4 normal; 5-9 mild; 10-14 moderate; 15-21 severe): 0 Source: Developed by Drs. Rell Trivedi, Nalini Abel, Dilip Solo and colleagues, with an educational karson from [employer]. BARRY-7 Assessment Billing BARRY-7 Assessment Tool: BARRY-7 Assessment 15900 Review of Systems Const Denies chills, Denies fever(s) and Denies headache(s) Eyes Denies blurry vision ENT Denies headache(s), Denies nasal discharge, Denies nasal obstruction, Denies odynophagia and Denies sinus pain Card Denies chest pain at rest and Denies chest pain with activity Resp Denies cough and Denies hemoptysis GI Denies diarrhea, Denies odynophagia, Denies vomiting and Denies hematemesis Reports as per HPI Musc Denies abnormal gait Skin/Breast Reports as per HPI Neuro Denies Neuro-related abnormal movements, Denies Abnormal speech present, Denies abnormal gait, Denies headache(s) and Denies Sensory deficit (Neuro) Psych Denies mood swings and Denies paranoia Endo Reports as per HPI Darinel/Lymph Reports as per HPI Aller/Immun Reports as per HPI Physical exam (Primary Care) Vital Signs: Last Vital Signs Pulse 87 04/21/23 12:33 BP 118/78 04/21/23 12:33 Pulse Ox 98 04/21/23 12:33 Oxygen Delivery Method Room Air 04/21/23 12:33 BMI result Body Mass Index 52.8 Tobacco/Smoking Status: Tobacco use Status Tobacco use date assessed 04/21/23 04/21/23 12:37 Patient Tobacco Use Status Never used Tobacco 04/21/23 12:37 e-Cigarette/Vaping Use Never Used 04/21/23 12:37 Depression Screening Interpretation: Negative Thrive Assessment: Date of Thrive Assessment Date Thrive assessed 01/14/23 04/21/23 12:37 Const General: cooperative, comfortable and no acute distress Orientation/consciousness: patient oriented x3 HENMT Head: Yes normocephalic and Yes atraumatic Eyes General: appearance normal, both eyes and all related structures Pupils: Equal, round and reactive pupils present EOM: EOMs intact bilaterally Neck Neck: Yes supple and No lymphadenopathy Thyroid: Thyroid normal Lymphatic: no lymphadenopathy noted Resp Other: Mild wheezing bilateral at the end of inspiration Effort & Inspection: normal respiratory effort and able to speak in complete sentences Cardio Heart sounds: S1 normal heart sound present and S2 normal heart sound present GI Palpation (GI): Soft to palpation and nontender Auscultation: normal bowel sounds General: Yes no CVA tenderness Back/Spine/Pelvis Back: no CVA tenderness Skin General skin exam: elasticity normal and turgor normal Neuro General: patient oriented x3 and gait normal Cranial nerves: Yes Equal, round and reactive pupils present Speech: No Abnormal speech present Sensory Exam: No Sensory deficit (Neuro) Coordination: tandem gait normal and Romberg test negative Extrem General: Yes normal exam except as noted and No edema Assessment and Plan Assessment & Plan (1) Encounter for general adult medical examination with abnormal findings: Code(s): Z00.01 - Encounter for general adult medical examination with abnormal findings (2) Diabetes mellitus type 2 in obese: Code(s): E11.69 - Type 2 diabetes mellitus with other specified complication; E66.9 - Obesity, unspecified (3) Morbid obesity due to excess calories: Code(s): E66.01 - Morbid (severe) obesity due to excess calories (4) Asthma, moderate persistent: Code(s): J45.40 - Moderate persistent asthma, uncomplicated Qualifiers: Asthma complication type: uncomplicated Qualified Code(s): J45.40 - Moderate persistent asthma, uncomplicated (5) Acne: Code(s): L70.9 - Acne, unspecified Qualifiers: Acne type: unspecified acne Qualified Code(s): L70.9 - Acne, unspecified (6) Hypertension, essential: Code(s): I10 - Essential (primary) hypertension Plan Patient is 37-year-old female came in today for physical examination Has my stable, however she is mildly wheezing today at the end of inspiration Do not have any shortness a breath No cough Patient is established with OBGYN for Pap smear and breast exam She also sees Dermatology for management of acne and is getting spironolactone serotonin through them along with metronidazole topical BMI is elevated patient has difficulty losing weight Diabetes mellitus: Diet-controlled Due for labs Follow-up 4 months physical exam 1 year Orders: Orders Hemoglobin A1c Today E11.69 - Type 2 diabetes mellitus with other specified complication, E66.01 - Morbid (severe) obesity due to excess calories, E66.9 - Obesity, unspecified, I10 - Essential (primary) hypertension, J45.40 - Moderate persistent asthma, uncomplicated, L70.9 - Acne, unspecified, Z00.01 - Encounter for general adult medical examination with abnormal findings Complete Blood Count Auto Diff Today E11.69 - Type 2 diabetes mellitus with other specified complication, E66.01 - Morbid (severe) obesity due to excess calories, E66.9 - Obesity, unspecified, I10 - Essential (primary) hypertension, J45.40 - Moderate persistent asthma, uncomplicated, L70.9 - Acne, unspecified, Z00.01 - Encounter for general adult medical examination with abnormal findings Lipid Panel Today E11.69 - Type 2 diabetes mellitus with other specified complication, E66.01 - Morbid (severe) obesity due to excess calories, E66.9 - Obesity, unspecified, I10 - Essential (primary) hypertension, J45.40 - Moderate persistent asthma, uncomplicated, L70.9 - Acne, unspecified, Z00.01 - Encounter for general adult medical examination with abnormal findings Comprehensive Met. Panel Today E11.69 - Type 2 diabetes mellitus with other specified complication, E66.01 - Morbid (severe) obesity due to excess calories, E66.9 - Obesity, unspecified, I10 - Essential (primary) hypertension, J45.40 - Moderate persistent asthma, uncomplicated, L70.9 - Acne, unspecified, Z00.01 - Encounter for general adult medical examination with abnormal findings Coding Level of Care Code Est Pt Prev Care 18-39y([id number]) Diagnoses Encounter for general adult medical examination with abnormal findings Z00.01 Diabetes mellitus type 2 in obese E11.69; E66.9 Morbid obesity due to excess calories E66.01 Moderate persistent asthma without complication J45.40 Asthma complication type: uncomplicated Acne, unspecified acne type L70.9 Acne type: unspecified acne Hypertension, essential I10 Additional Codes BARRY-7 Assessment Billing - BARRY-7 Assessment Tool: BARRY-7 Assessment [id number] ([id number])
== END 2023-04-21 13:03 | disposition home or self-care (01) ==
PROVIDERS: PCP Internal Medicine; Visit Provider Internal Medicine
DX: Z00.00 Encounter for general adult medical examination without abnormal findings (principal); E11.69 Type 2 diabetes mellitus with other specified complication; E66.01 Morbid (severe) obesity due to excess calories; Z68.43 Body mass index [BMI] 50.0-59.9, adult; J45.40 Moderate persistent asthma, uncomplicated; L70.9 Acne, unspecified; I10 Essential (primary) hypertension
CPT/HCPCS: 99395

== ENCOUNTER 2023-04-21 13:04 | Outpatient (REF) | payer OTHER, SELFPAY ==
[2023-04-21 16:15] LABS: MANUAL DIFF FLAG NO
[2023-04-21 16:21] LABS: Basophils Absolute Auto 0.1 X10*3/uL (0.0-0.2); Basophils Percent Auto 0.4 % (0-2); Eosinophils Absolute Auto 0.3 X10*3/uL (0.0-0.4); Eosinophils Percent Auto 2.6 % (0-4); Hematocrit 38.8 % (37.0-47.0); Hemoglobin 12.9 g/dl (12.0-16.0); Imm Gran Abs Auto 0.03 X10*3/uL (0.00-0.03); Imm Gran Pct Auto 0.3 % (0.0-0.4); Lymphocytes Absolute Auto 3.3 X10*3/uL (1.2-4.9); Lymphocytes Percent Auto 28.5 % (20-40); Mean Corpuscular HGB Conc 33.2 g/dl (31.0-35.0); Mean Corpuscular Hemoglobin 27.6 pg (27.0-33.0); Mean Corpuscular Volume 82.9 fL (80.0-98.0); Mean Platelet Volume 12.4 fL (9.4-12.3); Monocytes Absolute Auto 0.7 X10*3/uL (0.1-1.2); Monocytes Percent Auto 5.7 % (2-11); Neutrophils Absolute Auto 7.1 x10*3/uL (2.0-8.3); Neutrophils Percent Auto 62.5 % (45-73); Platelet Count 246 X10*3/uL (160-400); Red Blood Count 4.68 X10*6/uL (4.20-5.50); Red Cell Distribution Width 13.3 % (11.0-16.0); White Blood Count 11.4 X10*3/uL (4.8-10.8)
[2023-04-21 16:31] LABS: Estimated Average Glucose 117 mg/dL; Hemoglobin A1c % 5.7 % (<6.0)
[2023-04-21 16:34] LABS: Alanine Aminotransferase 14 U/L (0-31); Albumin Level 4.3 g/dL (3.5-5.0); Alkaline Phosphatase 64 U/L (39-117); Anion Gap 12 (12-20); Aspartate Amino Transferase 12 U/L (5-31); Bilirubin Total 0.7 mg/dL (0.0-1.0); Blood Urea Nitrogen 15 mg/dL (9-16); Calcium 9.7 mg/dL (8.4-10.2); Carbon Dioxide 27 mmol/L (22-29); Chloride 103 mmol/L (96-108); Cholesterol 188 mg/dL (<200); Estimated Glomerular Filt Rate > 60; Glucose Random 94 mg/dL (60-115); HDL Cholesterol 58 mg/dL (>40); LDL Cholesterol Calculated 108 mg/dL (<100); Potassium 4.1 mmol/L (3.3-5.1); Sodium 138 mmol/L (135-145); Total Protein 8.1 g/dL (6.5-8.0); Triglycerides 110 mg/dL (<150)
== END 2023-04-21 13:05 | disposition home or self-care (01) ==
LOC: HO.HMGCLDS 13:04
PROVIDERS: PCP Internal Medicine; Visit Provider Internal Medicine
DX: Z00.01 Encounter for general adult medical examination with abnormal findings (principal); E11.69 Type 2 diabetes mellitus with other specified complication; E66.01 Morbid (severe) obesity due to excess calories; J45.40 Moderate persistent asthma, uncomplicated; L70.9 Acne, unspecified; I10 Essential (primary) hypertension
CPT/HCPCS: 36415; 80053; 80061; 83036; 85025

== ENCOUNTER 2023-08-18 09:01 | Outpatient (AMB) | payer OTHER, SELFPAY ==
[2023-08-18 09:05] VITALS: BP 116/70; PULSE 89; O2SAT 99; BMI 56.9
--- NOTE | 2023-08-18 09:05 | MHC.PC.OV ---
Vital Signs 08/18/23 09:05 Height 5 ft 3 in Weight 321 lb 8 oz BMI 56.9 BP 116/70 Blood Pressure Location Rt brachial Position Sitting Pulse 89 Pulse Source Pulse Oximeter Pulse Oximetry (%) 99 Oxygen Delivery Method Room Air Intake Visit Reasons: 4 month follow up Allergies No Known Allergies Allergy (Verified 08/18/23 09:10) Medication List - Last Reconciled 08/18/23 by Krystle Ocasio MD albuterol sulfate 90 mcg/actuation (ProAir HFA) 1 inh inhalation QID PRN 30 days atorvastatin 20 mg PO DAILY 90 days budesonide-formoterol 80-4.5 mcg/actuation (Symbicort) 1 inh inhalation BID metformin 1,000 mg PO BID 90 days metronidazole 0.75% 1 appl topical BID norethindrone (contraceptive) (Twlia) 0.35 mg PO DAILY PRN 90 days spironolactone 50 mg PO DAILY tretinoin 0.1% 1 appl topical BEDTIME Tobacco use date assessed: 08/18/23 Dental Screening Dental Screen Date: 08/18/23 Did you have a dental visit in the last 12 months?: No Did you have a dental problem in the last 6 months where you did not have access to dental care?: No Was dental information given to patient?: No HPI 4 month follow up HPI Details Patient is 37-year-old female came in for her regular follow-up appointment Patient is doing well offer no new complaints today Last set of lab was done early April, patient will have labs done today She also sees Dermatology for management of acne and is getting spironolactone through them along with metronidazole topical BMI is elevated patient has difficulty losing weight Diabetes mellitus: Diet-controlled and metformin 1 g b.i.d. Asthma is stable patient is taking her inhalers regularly Follow-up 4 months physical exam 1 year Patient will return in 4 months for follow-up appointment [facility] Medical History Obesity Contact dermatitis Hypertension, essential Surgical History No pertinent past surgical history Family History Father No problems noted. Mother Back injury Substance use disorder Maternal Grandfather No problems noted. Maternal Grandmother HTN (hypertension) Diabetes mellitus Paternal Grandfather No problems noted. Brother No problems noted. Brother No problems noted. Sister No problems noted. Sister No problems noted. Sister No problems noted. Social History Household Members: None Housing: Apartment Alcohol intake: current Alcohol intake frequency: holidays/special occasions only Patient Tobacco Use Status: Never used Tobacco e-Cigarette/Vaping Use: Never Used Second Hand Smoke Exposure: No Current occupational status: employed Current occupation: [email or web address] Sexual orientation: Straight/Heterosexual Gender identity: Female Cognitive needs: No Hearing needs: No Vision needs: No Questionnaire PHQ-9 Over the last 2 weeks, how often have you been bothered by any of the following problems? 1. Little interest or pleasure in doing things: not at all 2. Feeling down, depressed, or hopeless: not at all 3. Trouble falling or staying asleep, or sleeping too much: not at all 4. Feeling tired or having little energy: not at all 5. Poor appetite or overeating: not at all 6. Feeling bad about yourself - or that you are a failure or have let yourself or your family down: not at all 7. Trouble concentrating on things, such as reading the newspaper or watching television: not at all 8. Moving or speaking so slowly that other people could have noticed. Or the opposite - being so fidgety or restless that you have been moving around a lot more than usual: not at all 9. Thoughts that you would be better off or of hurting yourself in some way: not at all Total score: 0 Depression Screening Interpretation: Negative Depression Screening Done: Yes 98518 - PHQ-9 Billing: Yes Source: Developed by Drs. Rell Trivedi, Nalini Abel, Dilip Solo and colleagues, with an educational karson from [employer]. Thrive Questionnaire Date Thrive assessed: 01/14/23 AUDIT C Alcohol Use Questionnaire (AUDIT-C) 1. How often do you have a drink containing alcohol?: Monthly or less 2. How many drinks containing alcohol do you have on a typical day when you are drinking?: 3 or 4 3. How often do you have six or more drinks on one occasion?: Never Total Score: 2 Score Reviewed/Action Taken: Yes BARRY-7 AMB Questionnaire BARRY-7 Date BARRY - 7 assessed: 01/14/23 Source: Developed by Drs. Rell Trivedi, Nalini Abel, Dilip Solo and colleagues, with an educational karson from [employer]. Review of Systems Const Denies chills and Denies fever(s) ENT Denies epistaxis and Denies nasal discharge Card Denies chest pain Resp Denies chest congestion, Denies cough and Denies hemoptysis GI Denies diarrhea and Denies nausea Skin/Breast Denies rash Neuro Reports no additional complaints Psych Reports no additional complaints Endo Reports no additional complaints Physical exam (Primary Care) Vital Signs: Last Vital Signs Pulse 89 08/18/23 09:05 BP 116/70 08/18/23 09:05 Pulse Ox 99 08/18/23 09:05 Oxygen Delivery Method Room Air 08/18/23 09:05 BMI result Body Mass Index 56.9 Tobacco/Smoking Status: Tobacco use Status Tobacco use date assessed 08/18/23 08/18/23 09:11 Patient Tobacco Use Status Never used Tobacco 08/18/23 09:11 e-Cigarette/Vaping Use Never Used 08/18/23 09:11 Depression Screening Interpretation: Negative Thrive Assessment: Date of Thrive Assessment Date Thrive assessed 01/14/23 08/18/23 09:11 Const General: cooperative, comfortable and no acute distress Orientation/consciousness: patient oriented x3 HENMT Head: Yes normocephalic Eyes General: appearance normal, both eyes and all related structures Neck Neck: Yes supple Resp Effort & Inspection: normal respiratory effort, no cough and no stridor Cardio Rhythm: regular rhythm Heart sounds: S1 normal heart sound present and S2 normal heart sound present Skin General skin exam: turgor normal Neuro General: patient oriented x3, tone normal and moves all extremities Extrem Right lower extremity: no edema Left lower extremity: no edema Assessment and Plan Assessment & Plan (1) Diabetes 1.5, managed as type 2: Code(s): E13.9 - Other specified diabetes mellitus without complications (2) Hypertension, essential: Code(s): I10 - Essential (primary) hypertension (3) Asthma, moderate persistent: Code(s): J45.40 - Moderate persistent asthma, uncomplicated Qualifiers: Asthma complication type: uncomplicated Qualified Code(s): J45.40 - Moderate persistent asthma, uncomplicated (4) Morbid obesity due to excess calories: Code(s): E66.01 - Morbid (severe) obesity due to excess calories (5) Acne: Code(s): L70.9 - Acne, unspecified Qualifiers: Acne type: unspecified acne Qualified Code(s): L70.9 - Acne, unspecified Plan Patient is 37-year-old female came in for her regular follow-up appointment Patient is doing well offer no new complaints today Last set of lab was done early April, patient will have labs done today She also sees Dermatology for management of acne and is getting spironolactone serotonin through them along with metronidazole topical BMI is elevated patient has difficulty losing weight Diabetes mellitus: Diet-controlled and metformin 1 g b.i.d. Asthma is stable patient is taking her inhalers regularly Follow-up 4 months physical exam 1 year Patient will return in 4 months for follow-up appointment Orders: Orders Complete Blood Count Auto Diff Today E13.9 - Other specified diabetes mellitus without complications, E66.01 - Morbid (severe) obesity due to excess calories, I10 - Essential (primary) hypertension, J45.40 - Moderate persistent asthma, uncomplicated LDL Cholesterol Direct Today E13.9 - Other specified diabetes mellitus without complications, E66.01 - Morbid (severe) obesity due to excess calories, I10 - Essential (primary) hypertension, J45.40 - Moderate persistent asthma, uncomplicated Hemoglobin A1c Today E13.9 - Other specified diabetes mellitus without complications, E66.01 - Morbid (severe) obesity due to excess calories, I10 - Essential (primary) hypertension, J45.40 - Moderate persistent asthma, uncomplicated Comprehensive Met. Panel Today E13.9 - Other specified diabetes mellitus without complications, E66.01 - Morbid (severe) obesity due to excess calories, I10 - Essential (primary) hypertension, J45.40 - Moderate persistent asthma, uncomplicated Coding Level of Care Code Est Pt Level 4 (34770) Complex EM visit Add On G2211 Diagnoses Diabetes 1.5, managed as type 2 E13.9 Hypertension, essential I10 Moderate persistent asthma without complication J45.40 Asthma complication type: uncomplicated Morbid obesity due to excess calories E66.01 Acne, unspecified acne type L70.9 Acne type: unspecified acne
== END 2023-08-18 09:23 | disposition home or self-care (01) ==
PROVIDERS: PCP Internal Medicine; Visit Provider Internal Medicine
DX: E13.9 Other specified diabetes mellitus without complications (principal); E66.01 Morbid (severe) obesity due to excess calories; Z68.43 Body mass index [BMI] 50.0-59.9, adult; I10 Essential (primary) hypertension; J45.40 Moderate persistent asthma, uncomplicated; L70.9 Acne, unspecified
CPT/HCPCS: 99214; G2211

== ENCOUNTER 2023-08-18 09:24 | Outpatient (REF) | payer OTHER, SELFPAY ==
[2023-08-18 10:15] LABS: MANUAL DIFF FLAG NO
[2023-08-18 10:26] LABS: Basophils Percent Auto 0.3 % (0-2); Eosinophils Absolute Auto 0.4 X10*3/uL (0.0-0.4); Eosinophils Percent Auto 3.2 % (0-4); Hematocrit 36.8 % (37.0-47.0); Hemoglobin 12.2 g/dl (12.0-16.0); Imm Gran Abs Auto 0.04 X10*3/uL (0.00-0.03); Imm Gran Pct Auto 0.3 % (0.0-0.4); Lymphocytes Percent Auto 25.8 % (20-40); Mean Corpuscular HGB Conc 33.2 g/dl (31.0-35.0); Mean Corpuscular Hemoglobin 27.4 pg (27.0-33.0); Mean Corpuscular Volume 82.5 fL (80.0-98.0); Mean Platelet Volume 11.8 fL (9.4-12.3); Monocytes Absolute Auto 0.8 X10*3/uL (0.1-1.2); Monocytes Percent Auto 6.6 % (2-11); Neutrophils Absolute Auto 7.4 x10*3/uL (2.0-8.3); Neutrophils Percent Auto 63.8 % (45-73); Platelet Count 226 X10*3/uL (160-400); Red Blood Count 4.46 X10*6/uL (4.20-5.50); Red Cell Distribution Width 13.9 % (11.0-16.0); White Blood Count 11.6 X10*3/uL (4.8-10.8)
[2023-08-18 10:51] LABS: Estimated Average Glucose 148 mg/dL; Hemoglobin A1c % 6.8 % (<6.0)
[2023-08-18 11:07] LABS: Alanine Aminotransferase 15 U/L (0-31); Albumin Level 4.1 g/dL (3.5-5.0); Alkaline Phosphatase 64 U/L (39-117); Anion Gap 13 (12-20); Aspartate Amino Transferase 12 U/L (5-31); Bilirubin Total 0.5 mg/dL (0.0-1.0); Blood Urea Nitrogen 15 mg/dL (9-16); Calcium 9.5 mg/dL (8.4-10.2); Carbon Dioxide 27 mmol/L (22-29); Chloride 105 mmol/L (96-108); Estimated Glomerular Filt Rate > 60; Glucose Random 120 mg/dL (60-115); Potassium 4.5 mmol/L (3.3-5.1); Sodium 140 mmol/L (135-145); Total Protein 7.7 g/dL (6.5-8.0)
[2023-08-19 17:13] LABS: LDL Cholesterol Direct 96 mg/dL (<100)
== END 2023-08-18 09:25 | disposition home or self-care (01) ==
LOC: HO.HMGCLDS 09:24
PROVIDERS: PCP Internal Medicine; Visit Provider Internal Medicine
DX: I10 Essential (primary) hypertension (principal); E13.9 Other specified diabetes mellitus without complications; J45.40 Moderate persistent asthma, uncomplicated; E66.01 Morbid (severe) obesity due to excess calories
CPT/HCPCS: 36415; 80053; 83036; 83721; 85025

== ENCOUNTER 2023-12-03 09:55 | Outpatient (AMB) | payer OTHER, SELFPAY ==
[2023-12-03 10:13] VITALS: BP 136/82; BMI 59.2
--- NOTE | 2023-12-03 10:13 | A.OFFVIS_ITS ---
Vital Signs 12/03/23 10:13 Height 5 ft 3 in Weight 334 lb BMI 59.2 BP 136/82 Intake Visit Reasons: Annual Instructional Writer: Instructional Writer Present (Macey) Allergies No Known Allergies Allergy (Verified 12/03/23 10:13) Is last menstrual period known: Yes Last menstrual period: 11/30/23 [facility] Comments Details: She is a premenopausal woman presenting for annual examination. Doing well with no concerns. She tries to eat healthy and stays active with exercise. Random bleeding w/Twila, no missed pills. Currently is sexually active. She denies vaginal itching and irritation. STI screening offered; she accepts. Denies family history of breast, ovarian or colon cancer. Last pap smear 2020, negative. [facility] Medical History Obesity Contact dermatitis Hypertension, essential Surgical History No pertinent past surgical history Family History Father No problems noted. Mother Back injury Substance use disorder Maternal Grandfather No problems noted. Maternal Grandmother HTN (hypertension) Diabetes mellitus Paternal Grandfather No problems noted. Brother No problems noted. Brother No problems noted. Sister No problems noted. Sister No problems noted. Sister No problems noted. Social History Household Members: None Housing: Apartment Alcohol intake: current Alcohol intake frequency: holidays/special occasions only Patient Tobacco Use Status: Never used Tobacco e-Cigarette/Vaping Use: Never Used Second Hand Smoke Exposure: No Current occupational status: employed Current occupation: [employer] / [employer] Sexual orientation: Straight/Heterosexual Gender identity: Female Cognitive needs: No Hearing needs: No Vision needs: No Female Reproductive History Menstrual Duration of menses: 3-5 days Date of last menstrual period: 11/30/23 control method: pills Total pregnancies: 0 Review of Systems Const All systems reviewed & are unremarkable except as noted in HPI and below Reports as per HPI Eyes Reports no additional complaints ENT Reports no additional complaints Card Reports no additional complaints Resp Reports no additional complaints GI Reports as per HPI and Reports no additional complaints Reports as per HPI Musc Reports no additional complaints Skin/Breast Reports as per HPI Neuro Reports no additional complaints Psych Reports no additional complaints Endo Reports no additional complaints Darinel/Lymph Reports no additional complaints Aller/Immun Reports no additional complaints Physical Exam Vital Signs: Last Vital Signs BP 136/82 12/03/23 10:13 BMI result Body Mass Index 59.2 Const General: cooperative, healthy appearing, no acute distress, well developed and alert Orientation/consciousness: patient oriented x3 HEENT Head: Yes normal to inspection Eyes General: appearance normal, both eyes and all related structures Neck Neck: Yes normal visual inspection Thyroid: Thyroid normal Chest Chest palpation & inspection: normal inspection of the chest and other (no puckering, dimpling, peau de orange, retraction, discharge, masses) Breast/axilla inspection: normal inspection of the breasts Breast/axilla palpation: normal palpation of the breasts Resp Effort & Inspection: normal respiratory effort GI Inspection: Yes normal to inspection Palpation (GI): Soft to palpation Rectal Exam - Female: deferred General: Yes bladder normal to palpation External Female Exam: normal external appearance and normal appearance of the urethra Speculum Exam - Vagina: normal appearance of the vagina, normal palpation and normal vaginal discharge Speculum Exam - Cervix: normal appearance of the cervix and normal palpation Bimanual exam- vagina & uterus: normal bimanual exam, normal palpation, uterine size normal, bladder normal to palpation, normal palpation and non-tender Bimanual Exam- Adnexa, other: no masses Skin General skin exam: no rashes or lesions noted Rashes: no rashes Neuro General: patient oriented x3 Cognition (Neuro): normal cognition Extrem General: Yes normal to inspection Psych Attitude: cooperative Thought process: Normal thought process present Assessment & Plan Assessment & Plan (1) Encounter for well woman exam with routine gynecological exam: Code(s): Z01.419 - Encounter for gynecological examination (general) (routine) without abnormal findings Category: Medical Plan Discussed: Current recommendations for pap smears per ASCCP guidelines. Breast awareness and periodic breast exams. Maintain a healthy lifestyle including a well balanced diet and routine exercise. Use condoms for STI and prevention. Patient verbalizes understanding and agrees to the plan of care. She was given opportunity to ask questions and all questions were answered to the best of my ability. 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 This note is constructed using voice recognition software. While every effort has been made to ensure accuracy, etcher apprentice photoengraving errors may have been included. Coding Level of Care Code Est Pt Prev Care 18-39y(11921) Diagnoses Encounter for well woman exam with routine gynecological exam Z01.419
--- NOTE | 2023-12-03 11:29 | A.OFFVIS_ITS ---
Vital Signs 12/03/23 10:13 12/03/23 11:30 Height 5 ft 3 in Weight 334 lb BMI 59.2 59.2 BP 136/82 Intake Visit Reasons: Annual Service Advocate Contact: Service Advocate Contact Present (Macey) Allergies No Known Allergies Allergy (Verified 12/03/23 10:13) Is last menstrual period known: Yes Last menstrual period: 11/29/23 HPI Comments Details: She is a premenopausal woman presenting for annual examination. Doing well with concerns: Considering a future next summer. Plans to see her primary care and her technician test systems to prepregnancy plan and discuss medications and goals for her health. She tries to eat healthy not as balanced as she would like at times and stays active. Currently taking [place], reports random unscheduled bleeding despite not missing the pill. She denies any risk to continue POP use. She denies vaginal itching and irritation. STI screening offered; she declines. Denies family history of breast, ovarian or colon cancer. Last pap smear 2020, negative. [facility] Medical History Obesity Contact dermatitis Hypertension, essential Surgical History No pertinent past surgical history Family History Father No problems noted. Mother Back injury Substance use disorder Maternal Grandfather No problems noted. Maternal Grandmother HTN (hypertension) Diabetes mellitus Paternal Grandfather No problems noted. Brother No problems noted. Brother No problems noted. Sister No problems noted. Sister No problems noted. Sister No problems noted. Social History Household Members: None Housing: Apartment Alcohol intake: current Alcohol intake frequency: holidays/special occasions only Patient Tobacco Use Status: Never used Tobacco e-Cigarette/Vaping Use: Never Used Second Hand Smoke Exposure: No Current occupational status: employed Current occupation: [employer] / [employer] Sexual orientation: Straight/Heterosexual Gender identity: Female Cognitive needs: No Hearing needs: No Vision needs: No Female Reproductive History Menstrual Date of last menstrual period: 11/29/23 control method: pills Total pregnancies: 0 Date of last pap smear: 11/16/20 (neg pap and hpv) Review of Systems Const All systems reviewed & are unremarkable except as noted in HPI and below Reports as per HPI Eyes Reports no additional complaints ENT Reports no additional complaints Card Reports no additional complaints Resp Reports no additional complaints GI Reports as per HPI and Reports no additional complaints Reports as per HPI Musc Reports no additional complaints Skin/Breast Reports as per HPI Neuro Reports no additional complaints Psych Reports no additional complaints Endo Reports no additional complaints Darinel/Lymph Reports no additional complaints Aller/Immun Reports no additional complaints Physical Exam Vital Signs: Last Vital Signs BP 136/82 12/03/23 10:13 BMI result Body Mass Index 59.2 Const General: cooperative, healthy appearing, no acute distress, well developed and alert Orientation/consciousness: patient oriented x3 HEENT Head: Yes normal to inspection Eyes General: appearance normal, both eyes and all related structures Neck Neck: Yes normal visual inspection Thyroid: Thyroid normal Chest Chest palpation & inspection: normal inspection of the chest and other (no puckering, dimpling, peau de orange, retraction, discharge, masses) Breast/axilla inspection: normal inspection of the breasts Breast/axilla palpation: normal palpation of the breasts Resp Effort & Inspection: normal respiratory effort GI Inspection: Yes normal to inspection Palpation (GI): Soft to palpation Rectal Exam - Female: deferred General: Yes bladder normal to palpation External Female Exam: normal external appearance and normal appearance of the urethra Speculum Exam - Vagina: normal appearance of the vagina, normal palpation and normal vaginal discharge Speculum Exam - Cervix: normal appearance of the cervix and normal palpation Bimanual exam- vagina & uterus: normal bimanual exam, normal palpation, uterine size normal, bladder normal to palpation, normal palpation and non-tender Bimanual Exam- Adnexa, other: no masses Skin General skin exam: no rashes or lesions noted Rashes: no rashes Neuro General: patient oriented x3 Cognition (Neuro): normal cognition Extrem General: Yes normal to inspection Psych Attitude: cooperative Thought process: Normal thought process present Results AMB Test Urine AMB Test Urine Negative Last Edit by RADHA Michelle on 12/03/23 10:55 Results Reviewed Results Reviewed: Laboratory Last Values [facility] Negative 12/03/23 10:54 Assessment & Plan Assessment & Plan (1) Encounter for well woman exam with routine gynecological exam: Code(s): Z01.419 - Encounter for gynecological examination (general) (routine) without abnormal findings Category: Medical Plan: Discussed: Current recommendations for pap smears per ASCCP guidelines. Breast awareness and periodic breast exams. Maintain a healthy lifestyle including a well balanced diet and routine exercise. Pre- planning maintenance of healthy weight and regular exercise, initiating vitamins or multivitamins with folic acid for the benefit of prevention of neural tube defects prior to stopping Mady 1 or 2 months ahead of time. would be considered high risk due to multiple factors including: Diabetes, hypertension, AMA, elevated BMI and her care would need to be completed at [facility]. Reviewed POP warnings. Patient verbalizes understanding and agrees to the plan of care. She was given opportunity to ask questions and all questions were answered to the best of my ability. RTO in one year for annual gynaecological oncologist examination. This note is constructed using voice recognition software. While every effort has been made to ensure accuracy, scribing machine operator errors may have been included. Orders: Orders AMB HCG Urine Test Today N92.1 - Excessive and frequent menstruation with irregular cycle Coding Level of Care Code Est Pt Prev Care 18-39y(57282) Diagnoses Encounter for well woman exam with routine gynecological exam Z01.419
[2023-12-03 11:30] VITALS: BMI 59.2
== END 2023-12-03 10:57 | disposition home or self-care (01) ==
PROVIDERS: PCP Internal Medicine; Visit Provider Advanced Practice Midwife
DX: Z01.419 Encounter for gynecological examination (general) (routine) without abnormal findings (principal); N92.1 Excessive and frequent menstruation with irregular cycle
CPT/HCPCS: 99395

== ENCOUNTER → 2023-12-03 09:55 | Outpatient (BNVA) | payer OTHER, SELFPAY | PROVIDERS: PCP Internal Medicine; Visit Provider Advanced Practice Midwife | DX: Z01.419 Encounter for gynecological examination (general) (routine) without abnormal findings (principal); N92.1 Excessive and frequent menstruation with irregular cycle | CPT/HCPCS: 81025; 99395 ==

== ENCOUNTER 2023-12-09 10:14 | Outpatient (AMB) | payer OTHER, SELFPAY ==
[2023-12-09 10:16] VITALS: BP 126/74; PULSE 85; O2SAT 97; BMI 58.5
--- NOTE | 2023-12-09 10:16 | MHC.PC.OV ---
Vital Signs 12/09/23 10:16 Height 5 ft 3 in Weight 330 lb BMI 58.5 BP 126/74 Blood Pressure Location Rt brachial Position Sitting Pulse 85 Pulse Source Pulse Oximeter Pulse Oximetry (%) 97 Oxygen Delivery Method Room Air Intake Visit Reasons: 4 month follow up Allergies No Known Allergies Allergy (Verified 12/09/23 10:16) Medication List - Last Reconciled 12/09/23 by Krystle Ocasio MD albuterol sulfate 90 mcg/actuation (ProAir HFA) 1 inh inhalation QID PRN 30 days atorvastatin 20 mg PO DAILY 90 days budesonide-formoterol 80-4.5 mcg/actuation (Symbicort) 1 inh inhalation BID metformin 1,000 mg PO BID 90 days metronidazole 0.75% 1 appl topical BID norethindrone (contraceptive) (Twila) 0.35 mg PO DAILY PRN 90 days spironolactone 50 mg PO DAILY tretinoin 0.1% 1 appl topical BEDTIME Tobacco use date assessed: 12/09/23 Dental Screening Dental Screen Date: 12/09/23 Did you have a dental visit in the last 12 months?: Yes Did you have a dental problem in the last 6 months where you did not have access to dental care?: No Was dental information given to patient?: Patient has dentist HPI 4 month follow up HPI Details Patient is 38-year-old female came in for her regular follow-up appointment She is due for hemoglobin A1c , it came back at 8.4 Patient says that she has not been controlling her diet properly but she will get back to proper diet She is feeling very emotional today, as she does not like fingersticks Through out the visit patient continued to have tears in her eyes off and on She also tells me that she is planning on getting next year in summer And she is wondering about her medications, currently she is on a control pill We will talk about it once she decide to get off the control pill for now she may continue with medications Last set up lab done in July reviewed again management of acne through Dermatology, patient is on spironolactone through them along with metronidazole topical BMI is elevated patient has difficulty losing weight Diabetes mellitus: I am starting her on glipizide metformin combination 5 500 mg once a day She is terrified of finger prick so tells me that she does not want to monitor her sugars Asthma is stable patient is taking her inhalers regularly New set of lab order placed to be done before next visit [facility] Medical History Obesity Contact dermatitis Hypertension, essential Surgical History No pertinent past surgical history Family History Father No problems noted. Mother Back injury Substance use disorder Maternal Grandfather No problems noted. Maternal Grandmother HTN (hypertension) Diabetes mellitus Paternal Grandfather No problems noted. Brother No problems noted. Brother No problems noted. Sister No problems noted. Sister No problems noted. Sister No problems noted. Social History Household Members: None Housing: Apartment Alcohol intake: current Alcohol intake frequency: holidays/special occasions only Patient Tobacco Use Status: Never used Tobacco e-Cigarette/Vaping Use: Never Used Second Hand Smoke Exposure: No Current occupational status: employed Current occupation: [employer] Sexual orientation: Straight/Heterosexual Gender identity: Female Cognitive needs: No Hearing needs: No Vision needs: No Questionnaire PHQ-9 Over the last 2 weeks, how often have you been bothered by any of the following problems? 1. Little interest or pleasure in doing things: not at all 2. Feeling down, depressed, or hopeless: not at all 3. Trouble falling or staying asleep, or sleeping too much: not at all 4. Feeling tired or having little energy: not at all 5. Poor appetite or overeating: not at all 6. Feeling bad about yourself - or that you are a failure or have let yourself or your family down: not at all 7. Trouble concentrating on things, such as reading the newspaper or watching television: not at all 8. Moving or speaking so slowly that other people could have noticed. Or the opposite - being so fidgety or restless that you have been moving around a lot more than usual: not at all 9. Thoughts that you would be better off or of hurting yourself in some way: not at all Total score: 0 Depression Screening Interpretation: Negative Depression Screening Done: Yes 02499 - PHQ-9 Billing: Yes Source: Developed by Drs. Rell Trivedi, Nalini Abel, Dilip Solo and colleagues, with an educational karson from [employer]. Thrive Questionnaire Date Thrive assessed: 12/09/23 I am a: Patient What is your living situation today?: I have a steady place to live Within the past 12 months, did the food you bought not last and you didn't have the money to get more?: Never true Within the past 12 months, did you worry whether your food would run out before you got money to buy more?: Never true Do you have trouble paying for medicines?: No Do you have trouble getting transportation to medical appointments?: No Do you have trouble paying your heating and electricity bill?: No Do you have trouble taking care of your child, family member or friend?: No Do you have trouble with day-to-day activities such as bathing, preparing meals, shopping, managing finances, etc.?: No Are you currently unemployed and looking for a job?: No Are you interested in more education?: No Please select the resources that you would like help with: None Currently or been in a relationship where the following occur: No concerns reported THRIVE Score: 0 AUDIT C Alcohol Use Questionnaire (AUDIT-C) 1. How often do you have a drink containing alcohol?: Monthly or less 2. How many drinks containing alcohol do you have on a typical day when you are drinking?: 1 or 2 3. How often do you have six or more drinks on one occasion?: Never Total Score: 1 Score Reviewed/Action Taken: Yes BARRY-7 AMB Questionnaire BARRY-7 Date BARRY - 7 assessed: 12/09/23 Feeling nervous, anxious, or on edge: 0 = Not at all Not being able to stop or control worryin = Not at all Worrying too much about different things: 0 = Not at all Trouble relaxin = Not at all Being so restless that it is hard to sit still: 0 = Not at all Becoming easily annoyed or irritable: 0 = Not at all Feeling afraid as if something awful might happen: 0 = Not at all Total BARRY-7 score (0-4 normal; 5-9 mild; 10-14 moderate; 15-21 severe): 0 Source: Developed by Drs. Rell Trivedi, Nalini Abel, Dilip Solo and colleagues, with an educational karson from [employer]. BARRY-7 Assessment Billing BARRY-7 Assessment Tool: BARRY-7 Assessment [id number] Review of Systems Const Denies chills and Denies fever(s) ENT Denies epistaxis and Denies nasal discharge Card Denies chest pain Resp Denies chest congestion, Denies cough and Denies hemoptysis GI Denies diarrhea and Denies nausea Skin/Breast Denies rash Neuro Reports no additional complaints Psych Reports no additional complaints Endo Reports no additional complaints Physical exam (Primary Care) Vital Signs: Last Vital Signs Pulse 85 12/09/23 10:16 BP 126/74 12/09/23 10:16 Pulse Ox 97 12/09/23 10:16 Oxygen Delivery Method Room Air 12/09/23 10:16 BMI result Body Mass Index 58.5 Tobacco/Smoking Status: Tobacco use Status Tobacco use date assessed 12/09/23 12/09/23 10:19 Patient Tobacco Use Status Never used Tobacco 12/09/23 10:19 e-Cigarette/Vaping Use Never Used 12/09/23 10:19 PHQ-9: PHQ-9 Score PHQ-9: Total score 0 12/09/23 10:19 Depression Screening Interpretation: Negative Thrive Assessment: Date of Thrive Assessment Date Thrive assessed 12/09/23 12/09/23 10:19 Currently or been in a relationship where the following occur: No concerns reported Const General: cooperative, comfortable and no acute distress Orientation/consciousness: patient oriented x3 HENMT Head: Yes normocephalic Eyes General: appearance normal, both eyes and all related structures Neck Neck: Yes supple Resp Effort & Inspection: normal respiratory effort, no cough and no stridor Cardio Rhythm: regular rhythm Heart sounds: S1 normal heart sound present and S2 normal heart sound present Skin General skin exam: turgor normal Neuro General: patient oriented x3, tone normal and moves all extremities Extrem Right lower extremity: no edema Left lower extremity: no edema Coding Level of Care Code Est Pt Level 4 (09334) Complex EM visit Add On G2211 Diagnoses Diabetes 1.5, managed as type 2 E13.9 Moderate persistent asthma without complication J45.40 Asthma complication type: uncomplicated Hypertension, essential I10 Acne, unspecified acne type L70.9 Acne type: unspecified acne Morbid obesity due to excess calories E66.01 Additional Codes BARRY-7 Assessment Billing - BARRY-7 Assessment Tool: BARRY-7 Assessment [id number] ([id number]) Assessment & Plan Assessment & Plan (1) Diabetes 1.5, managed as type 2: Code(s): E13.9 - Other specified diabetes mellitus without complications Category: Medical (2) Asthma, moderate persistent: Code(s): J45.40 - Moderate persistent asthma, uncomplicated Category: Medical Qualifiers: Asthma complication type: uncomplicated Qualified Code(s): J45.40 - Moderate persistent asthma, uncomplicated (3) Hypertension, essential: Code(s): I10 - Essential (primary) hypertension Category: Medical (4) Acne: Code(s): L70.9 - Acne, unspecified Category: Medical Qualifiers: Acne type: unspecified acne Qualified Code(s): L70.9 - Acne, unspecified (5) Morbid obesity due to excess calories: Code(s): E66.01 - Morbid (severe) obesity due to excess calories Category: Medical Plan Patient is 38-year-old female came in for her regular follow-up appointment She is due for hemoglobin A1c , it came back at 8.4 Patient says that she has not been controlling her diet properly but she will get back to proper diet She is feeling very emotional today, as she does not like fingersticks Through out the visit patient continued to have tears in her eyes off and on She also tells me that she is planning on getting next year in summer And she is wondering about her medications, currently she is on a control pill We will talk about it once she decide to get off the control pill for now she may continue with medications Last set up lab done in July reviewed again management of acne through Dermatology, patient is on spironolactone through them along with metronidazole topical BMI is elevated patient has difficulty losing weight Diabetes mellitus: I am starting her on glipizide metformin combination 5 500 mg once a day She is terrified of finger prick so tells me that she does not want to monitor her sugars Asthma is stable patient is taking her inhalers regularly New set of lab order placed to be done before next visit Orders: Orders Comprehensive [place]. Panel Fast Today E13.9 - Other specified diabetes mellitus without complications, E66.01 - Morbid (severe) obesity due to excess calories, I10 - Essential (primary) hypertension, J45.40 - Moderate persistent asthma, uncomplicated, L70.9 - Acne, unspecified Lipid Panel Today E13.9 - Other specified diabetes mellitus without complications, E66.01 - Morbid (severe) obesity due to excess calories, I10 - Essential (primary) hypertension, J45.40 - Moderate persistent asthma, uncomplicated, L70.9 - Acne, unspecified Hemoglobin A1c Today E13.9 - Other specified diabetes mellitus without complications, E66.01 - Morbid (severe) obesity due to excess calories, I10 - Essential (primary) hypertension, J45.40 - Moderate persistent asthma, uncomplicated, L70.9 - Acne, unspecified Complete Blood Count Auto Diff Today E13.9 - Other specified diabetes mellitus without complications, E66.01 - Morbid (severe) obesity due to excess calories, I10 - Essential (primary) hypertension, J45.40 - Moderate persistent asthma, uncomplicated, L70.9 - Acne, unspecified Microalbumin, Random (w Creat) Today E13.9 - Other specified diabetes mellitus without complications, E66.01 - Morbid (severe) obesity due to excess calories, I10 - Essential (primary) hypertension, J45.40 - Moderate persistent asthma, uncomplicated, L70.9 - Acne, unspecified Referrals Ophthalmology Referral E13.9 - Other specified diabetes mellitus without complications Medications: New glipizide-metformin 5-500 mg 1 tab PO DAILY 90 tabs 0RF E66.01 - Morbid (severe) obesity due to excess calories Discontinued metformin Discontinued Reason: Doctor's Order 1,000 mg PO BID 90 days 180 tabs 0RF E13.9 - Other specified diabetes mellitus without complications
== END 2023-12-09 10:56 | disposition home or self-care (01) ==
PROVIDERS: PCP Internal Medicine; Visit Provider Internal Medicine
DX: J45.40 Moderate persistent asthma, uncomplicated (principal); E13.9 Other specified diabetes mellitus without complications; Z68.43 Body mass index [BMI] 50.0-59.9, adult; E66.813 Obesity, class 3; I10 Essential (primary) hypertension; L70.9 Acne, unspecified; B97.0 Adenovirus as the cause of diseases classified elsewhere

== ENCOUNTER → 2023-12-09 10:14 | Outpatient (BNVA) | payer OTHER, SELFPAY | PROVIDERS: PCP Internal Medicine; Visit Provider Internal Medicine | DX: E13.9 Other specified diabetes mellitus without complications (principal); J45.40 Moderate persistent asthma, uncomplicated; I10 Essential (primary) hypertension; L70.9 Acne, unspecified; E66.01 Morbid (severe) obesity due to excess calories | CPT/HCPCS: 83036; 96127; 99212 ==

== ENCOUNTER 2023-12-09 10:58 | Outpatient (REF) | payer OTHER, SELFPAY ==
[2023-12-09 13:33] LABS: MANUAL DIFF FLAG NO
[2023-12-09 13:56] LABS: Basophils Absolute Auto 0.1 X10*3/uL (0.0-0.2); Basophils Percent Auto 0.5 % (0-2); Eosinophils Absolute Auto 0.4 X10*3/uL (0.0-0.4); Hematocrit 39.2 % (37.0-47.0); Hemoglobin 12.7 g/dl (12.0-16.0); Imm Gran Abs Auto 0.03 X10*3/uL (0.00-0.03); Imm Gran Pct Auto 0.3 % (0.0-0.4); Lymphocytes Absolute Auto 2.8 X10*3/uL (1.2-4.9); Lymphocytes Percent Auto 24.5 % (20-40); Mean Corpuscular HGB Conc 32.4 g/dl (31.0-35.0); Mean Corpuscular Hemoglobin 26.7 pg (27.0-33.0); Mean Corpuscular Volume 82.4 fL (80.0-98.0); Mean Platelet Volume 12.6 fL (9.4-12.3); Monocytes Absolute Auto 0.9 X10*3/uL (0.1-1.2); Monocytes Percent Auto 7.6 % (2-11); Neutrophils Absolute Auto 7.4 x10*3/uL (2.0-8.3); Neutrophils Percent Auto 64.1 % (45-73); Platelet Count 249 X10*3/uL (160-400); Red Blood Count 4.76 X10*6/uL (4.20-5.50); Red Cell Distribution Width 13.9 % (11.0-16.0); White Blood Count 11.5 X10*3/uL (4.8-10.8)
[2023-12-09 14:11] LABS: Estimated Average Glucose 177 mg/dL; Hemoglobin A1C 194.3492 umol/L; Hemoglobin A1c % 7.8 % (<6.0); Total Hemoglobin (HGBA1C) 3132.5965 umol/L
[2023-12-09 14:21] LABS: Alanine Aminotransferase 25 U/L (0-31); Albumin Level 4.2 g/dL (3.5-5.0); Alkaline Phosphatase 77 U/L (39-117); Anion Gap 13 (12-20); Aspartate Amino Transferase 16 U/L (5-31); Bilirubin Total 0.6 mg/dL (0.0-1.0); Blood Urea Nitrogen 13 mg/dL (9-16); Calcium 10.2 mg/dL (8.4-10.2); Carbon Dioxide 26 mmol/L (22-29); Chloride 105 mmol/L (96-108); Cholesterol 169 mg/dL (<200); Estimated Glomerular Filt Rate > 60; Glucose Fasting 150 mg/dL (60-99); HDL Cholesterol 51 mg/dL (>40); LDL Cholesterol Calculated 94 mg/dL (<100); Potassium 4.4 mmol/L (3.3-5.1); Sodium 140 mmol/L (135-145); Triglycerides 120 mg/dL (<150)
[2023-12-09 14:22] LABS: Creatinine Urine 66.37 mg/dL; Microalbum/Creatinine Ratio Ur 13.5 ug/mg cr (<30)
== END 2023-12-09 10:59 | disposition home or self-care (01) ==
LOC: HO.HMGCLDS 10:58
PROVIDERS: PCP Internal Medicine; Visit Provider Internal Medicine
DX: E13.9 Other specified diabetes mellitus without complications (principal); I10 Essential (primary) hypertension; J45.40 Moderate persistent asthma, uncomplicated; E66.01 Morbid (severe) obesity due to excess calories; L70.9 Acne, unspecified
CPT/HCPCS: 36415; 80053; 80061; 82043; 82570; 83036; 85025

== ENCOUNTER 2024-03-14 13:42 | Outpatient (REF) | payer OTHER, SELFPAY ==
[2024-03-14 16:08] LABS: MANUAL DIFF FLAG NO
[2024-03-14 16:20] LABS: Basophils Percent Auto 0.4 % (0-2); Eosinophils Absolute Auto 0.3 X10*3/uL (0.0-0.4); Hematocrit 40.2 % (37.0-47.0); Hemoglobin 12.9 g/dl (12.0-16.0); Imm Gran Abs Auto 0.04 X10*3/uL (0.00-0.03); Imm Gran Pct Auto 0.4 % (0.0-0.4); Lymphocytes Absolute Auto 3.2 X10*3/uL (1.2-4.9); Lymphocytes Percent Auto 28.5 % (20-40); Mean Corpuscular HGB Conc 32.1 g/dl (31.0-35.0); Mean Corpuscular Volume 80.9 fL (80.0-98.0); Mean Platelet Volume 12.4 fL (9.4-12.3); Monocytes Absolute Auto 0.7 X10*3/uL (0.1-1.2); Monocytes Percent Auto 6.3 % (2-11); Neutrophils Absolute Auto 6.8 x10*3/uL (2.0-8.3); Neutrophils Percent Auto 61.4 % (45-73); Platelet Count 261 X10*3/uL (160-400); Red Blood Count 4.97 X10*6/uL (4.20-5.50); Red Cell Distribution Width 14.4 % (11.0-16.0); White Blood Count 11.1 X10*3/uL (4.8-10.8)
[2024-03-14 17:52] LABS: Estimated Average Glucose 160 mg/dL; Hemoglobin A1C 183.3236 umol/L; Hemoglobin A1c % 7.2 % (<6.0); Total Hemoglobin (HGBA1C) 3348.9213 umol/L
[2024-03-14 18:10] LABS: Creatinine Urine 44.94 mg/dL; Microalbum/Creatinine Ratio Ur 13.3 ug/mg cr (<30)
[2024-03-14 19:28] LABS: Alanine Aminotransferase 13 U/L (0-31); Anion Gap 12 (12-20); Aspartate Amino Transferase 17 U/L (5-31); Bilirubin Total 0.7 mg/dL (0.0-1.0); Blood Urea Nitrogen 13 mg/dL (9-16); Calcium 9.7 mg/dL (8.4-10.2); Carbon Dioxide 25 mmol/L (22-29); Chloride 105 mmol/L (96-108); Estimated Glomerular Filt Rate > 60; Glucose Random 116 mg/dL (60-115); Potassium 4.2 mmol/L (3.3-5.1); Sodium 138 mmol/L (135-145); Total Protein 8.1 g/dL (6.5-8.0)
[2024-03-14 20:20] LABS: Alkaline Phosphatase 82 U/L (39-117)
[2024-03-16 00:59] LABS: LDL Cholesterol Direct 105 mg/dL (<100)
== END 2024-03-14 13:43 | disposition home or self-care (01) ==
LOC: HO.HMGCLDS 13:42
PROVIDERS: PCP Internal Medicine; Visit Provider Internal Medicine
DX: E11.69 Type 2 diabetes mellitus with other specified complication (principal); E66.9 Obesity, unspecified; I10 Essential (primary) hypertension
CPT/HCPCS: 36415; 80053; 82043; 82570; 83036; 83721; 85025

== ENCOUNTER 2024-03-15 11:15 | Outpatient (AMB) | payer OTHER, SELFPAY ==
[2024-03-15 11:16] VITALS: BP 140/96; PULSE 87; O2SAT 100; BMI 57.8
--- NOTE | 2024-03-15 11:16 | MHC.PC.OV ---
Vital Signs 03/15/24 11:16 Height 5 ft 3 in Weight 326 lb 4 oz BMI 57.8 BP 140/96 H Blood Pressure Location Lt brachial Position Sitting Pulse 87 Pulse Source Pulse Oximeter Pulse Oximetry (%) 100 Oxygen Delivery Method Room Air Intake Visit Reasons: 3 months f/up Allergies No Known Allergies Allergy (Verified 03/15/24 11:17) Medication List - Last Reconciled 03/15/24 by Krystle Ocasio MD albuterol sulfate 90 mcg/actuation (ProAir HFA) 1 inh inhalation QID PRN 30 days atorvastatin 20 mg PO DAILY 90 days budesonide-formoterol 80-4.5 mcg/actuation (Symbicort) 1 inh inhalation BID glipizide-metformin 5-500 mg 1 tab PO DAILY metronidazole 0.75% 1 appl topical BID norethindrone (contraceptive) (Twila) 0.35 mg PO DAILY PRN 90 days spironolactone 50 mg PO DAILY tretinoin 0.1% 1 appl topical BEDTIME Tobacco use date assessed: 03/15/24 Dental Screening Dental Screen Date: 03/15/24 Did you have a dental visit in the last 12 months?: Yes Did you have a dental problem in the last 6 months where you did not have access to dental care?: No Was dental information given to patient?: Patient has dentist HPI 3 months f/up HPI Details - The patient is a 38 year old female presenting with a sore throat. - Associated ear discomfort and chest muscle achiness are noted. - Strep throat has been ruled out with a negative test result. - The patient also mentions lethargy and general malaise, suggestive of a potential viral illness. She is also due for her regular follow-up appointment Patient has a history of diabetes, asthma, lipid disorder, and acne She is taking all her medications no side effects Viral Illness The patient will continue current medication and focus on rest while monitoring the illness's progression. A COVID-19 test will be conducted for further diagnosis. Supportive care with no changes in her medication was advised. Medications - Simbacort: For asthma management. - Glipizide: For diabetes management. - Spironolactone: For blood pressure regulation. - Combination tablet: Replacing Metformin for diabetic control. Patient Instructions - Rest at home and avoid strenuous activities. - Monitor symptoms and notify the clinician if conditions worsen. - Take the prescribed medications as directed. - Follow up if COVID-19 test results show positive. Review of Systems - Ears: Reports achy feeling inside the ears. - Chest: Reports achy feeling on the upper part of the chest. - General: Reports feeling lethargic. 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 Mother Back injury Substance use disorder Maternal Grandfather No problems noted. Maternal Grandmother HTN (hypertension) Diabetes mellitus Paternal Grandfather No problems noted. Brother No problems noted. Brother No problems noted. Sister No problems noted. Sister No problems noted. Sister No problems noted. Social History Household Members: None Housing: Apartment Alcohol intake: current Alcohol intake frequency: holidays/special occasions only Patient Tobacco Use Status: Never used Tobacco e-Cigarette/Vaping Use: Never Used Second Hand Smoke Exposure: No Current occupational status: employed Current occupation: [employer] / [employer] Sexual orientation: Straight/Heterosexual Gender identity: Female Cognitive needs: No Hearing needs: No Vision needs: No Questionnaire PHQ-9 Over the last 2 weeks, how often have you been bothered by any of the following problems? 1. Little interest or pleasure in doing things: not at all 2. Feeling down, depressed, or hopeless: not at all 3. Trouble falling or staying asleep, or sleeping too much: not at all 4. Feeling tired or having little energy: several days 5. Poor appetite or overeating: not at all 6. Feeling bad about yourself - or that you are a failure or have let yourself or your family down: not at all 7. Trouble concentrating on things, such as reading the newspaper or watching television: not at all 8. Moving or speaking so slowly that other people could have noticed. Or the opposite - being so fidgety or restless that you have been moving around a lot more than usual: not at all 9. Thoughts that you would be better off or of hurting yourself in some way: not at all Total score: 1 Depression Screening Interpretation: Negative Depression Screening Done: Yes 77557 - PHQ-9 Billing: Yes Source: Developed by Drs. Rell Trivedi, Nalini Abel, Dilip Solo and colleagues, with an educational karson from [employer] Thrive Questionnaire Date Thrive assessed: 12/09/23 I am a: Patient What is your living situation today?: I have a steady place to live Within the past 12 months, did the food you bought not last and you didn't have the money to get more?: Never true Within the past 12 months, did you worry whether your food would run out before you got money to buy more?: Sometimes True Do you have trouble paying for medicines?: No Do you have trouble getting transportation to medical appointments?: No Do you have trouble paying your heating and electricity bill?: No Do you have trouble taking care of your child, family member or friend?: No Do you have trouble with day-to-day activities such as bathing, preparing meals, shopping, managing finances, etc.?: No Are you currently unemployed and looking for a job?: No Are you interested in more education?: No Please select the resources that you would like help with: None Currently or been in a relationship where the following occur: No concerns reported THRIVE Score: 1 AUDIT C Alcohol Use Questionnaire (AUDIT-C) 1. How often do you have a drink containing alcohol?: Monthly or less 2. How many drinks containing alcohol do you have on a typical day when you are drinking?: 1 or 2 3. How often do you have six or more drinks on one occasion?: Never Total Score: 1 BARRY-7 AMB Questionnaire BARRY-7 Date BARRY - 7 assessed: 12/09/23 Feeling nervous, anxious, or on edge: 0 = Not at all Not being able to stop or control worryin = Not at all Worrying too much about different things: 0 = Not at all Trouble relaxin = Not at all Being so restless that it is hard to sit still: 0 = Not at all Becoming easily annoyed or irritable: 1 = Several days Feeling afraid as if something awful might happen: 0 = Not at all Total BARRY-7 score (0-4 normal; 5-9 mild; 10-14 moderate; 15-21 severe): 1 Source: Developed by Drs. Rell Trivedi, Nalini Abel, Dilip Solo and colleagues, with an educational karson from [employer] Physical exam (Primary Care) Vital Signs: Last Vital Signs Pulse 87 03/15/24 11:16 BP 140/96 H 03/15/24 11:16 Pulse Ox 100 03/15/24 11:16 Oxygen Delivery Method Room Air 03/15/24 11:16 BMI result Body Mass Index 57.8 Tobacco/Smoking Status: Tobacco use Status Tobacco use date assessed 03/15/24 03/15/24 11:19 Patient Tobacco Use Status Never used Tobacco 03/15/24 11:19 e-Cigarette/Vaping Use Never Used 03/15/24 11:19 PHQ-9: PHQ-9 Score PHQ-9: Total score 1 03/15/24 11:19 Depression Screening Interpretation: Negative Thrive Assessment: Date of Thrive Assessment Date Thrive assessed 12/09/23 03/15/24 11:19 Currently or been in a relationship where the following occur: No concerns reported Coding Level of Care Code Est Pt Level 4 (64686) Complex EM visit Add On G2211 Diagnoses Viral respiratory illness J98.8; B97.89 Diabetes 1.5, managed as type 2 E13.9 Moderate persistent asthma without complication J45.40 Asthma complication type: uncomplicated Hypertension, essential I10 Acne, unspecified acne type L70.9 Acne type: unspecified acne Morbid obesity due to excess calories E66.01 Additional Codes PHQ-9 - 91453 - PHQ-9 Billing: Yes ([id number]) Assessment & Plan Assessment & Plan (1) Viral respiratory illness: Code(s): J98.8 - Other specified respiratory disorders; B97.89 - Other viral agents as the cause of diseases classified elsewhere Category: Medical (2) Diabetes 1.5, managed as type 2: Code(s): E13.9 - Other specified diabetes mellitus without complications Category: Medical (3) Asthma, moderate persistent: Code(s): J45.40 - Moderate persistent asthma, uncomplicated Category: Medical Qualifiers: Asthma complication type: uncomplicated Qualified Code(s): J45.40 - Moderate persistent asthma, uncomplicated (4) Hypertension, essential: Code(s): I10 - Essential (primary) hypertension Category: Medical (5) Acne: Code(s): L70.9 - Acne, unspecified Category: Medical Qualifiers: Acne type: unspecified acne Qualified Code(s): L70.9 - Acne, unspecified (6) Morbid obesity due to excess calories: Code(s): E66.01 - Morbid (severe) obesity due to excess calories Category: Medical Plan - The patient is a 38 year old female presenting with a sore throat. - Associated ear discomfort and chest muscle achiness are noted. - Strep throat has been ruled out with a negative test result. - The patient also mentions lethargy and general malaise, suggestive of a potential viral illness. She is also due for her regular follow-up appointment Patient has a history of diabetes, asthma, lipid disorder, and acne She is taking all her medications no side effects Viral Illness The patient will continue current medication and focus on rest while monitoring the illness's progression. A COVID-19 test will be conducted for further diagnosis. Supportive care with no changes in her medication was advised. Medications - Simbacort: For asthma management. - Glipizide: For diabetes management. - Spironolactone: For blood pressure regulation. - Combination tablet: Replacing Metformin for diabetic control. Patient Instructions - Rest at home and avoid strenuous activities. - Monitor symptoms and notify the clinician if conditions worsen. - Take the prescribed medications as directed. - Follow up if COVID-19 test results show positive. Orders: Orders SARS-CoV2/FLU/RSV Today R09.89 - Other specified symptoms and signs involving the circulatory and respiratory systems
== END 2024-03-15 11:41 | disposition home or self-care (01) ==
PROVIDERS: PCP Internal Medicine; Visit Provider Internal Medicine
DX: J98.8 Other specified respiratory disorders (principal); B97.89 Other viral agents as the cause of diseases classified elsewhere; E13.9 Other specified diabetes mellitus without complications; J45.40 Moderate persistent asthma, uncomplicated; I10 Essential (primary) hypertension; L70.9 Acne, unspecified; E66.01 Morbid (severe) obesity due to excess calories; Z13.9 Encounter for screening, unspecified; Z68.43 Body mass index [BMI] 50.0-59.9, adult

== ENCOUNTER → 2024-03-15 11:15 | Outpatient (BNVA) | payer OTHER, SELFPAY | PROVIDERS: PCP Internal Medicine; Visit Provider Internal Medicine | DX: J98.8 Other specified respiratory disorders (principal); B97.89 Other viral agents as the cause of diseases classified elsewhere; E13.9 Other specified diabetes mellitus without complications; J45.40 Moderate persistent asthma, uncomplicated; I10 Essential (primary) hypertension; L70.9 Acne, unspecified; E66.01 Morbid (severe) obesity due to excess calories | CPT/HCPCS: 87880; 96127; 99212 ==

== ENCOUNTER 2024-03-15 13:04 | Outpatient (REF) | payer OTHER, SELFPAY ==
[2024-03-15 14:16] LABS: Influenza A PCR NEGATIVE (Negative); Influenza B PCR NEGATIVE (Negative); Resp Syncy Virus RNA Qual PCR NEGATIVE (Negative); SARS COV2 PCR INHOUSE NEGATIVE (Negative)
== END 2024-03-15 13:05 | disposition home or self-care (01) ==
LOC: HO.LNP 13:04
PROVIDERS: Visit Provider Internal Medicine
DX: R09.89 Other specified symptoms and signs involving the circulatory and respiratory systems (principal)
CPT/HCPCS: 0241U

== ENCOUNTER 2024-03-17 08:58 | Outpatient (AMB) | payer OTHER, SELFPAY ==
--- NOTE | 2024-03-17 09:46 | AM.OFFWIN_ITS ---
Intake Vital Signs 03/17/24 09:47 Height 5 ft 3 in Weight 331 lb BMI 58.6 BP 138/86 Blood Pressure Location Lt brachial Position Sitting Pulse 84 Pulse Source Pulse Oximeter Temp 98.8 F Temp Source Oral Pulse Oximetry (%) 96 Oxygen Delivery Method Room Air Intake Visit Reasons: EP sore throat, ears, inflammation Intake Note: Pt is here today for a walk in visit. Pt c/o bilateral ear pain, chest congestion. Pt states that she had a visit with her PCP on Thursday and she had the covid, rsv and flu test done and they were negative. Patient Tobacco Use Status: Never used Tobacco Allergies No Known Allergies Allergy (Verified 03/17/24 09:53) HPI HPI Comments History of Present Illness Details 38 y/o female patient who presents to [facility] walk in clinic with c/o chest tightness, SOB and wheezing since Thursday. H/o Asthma. [facility] Medical History Obesity Contact dermatitis Hypertension, essential Surgical History No pertinent past surgical history Family History Father No problems noted. Mother Back injury Substance use disorder Maternal Grandfather No problems noted. Maternal Grandmother HTN (hypertension) Diabetes mellitus Paternal Grandfather No problems noted. Brother No problems noted. Brother No problems noted. Sister No problems noted. Sister No problems noted. Sister No problems noted. Social History Household Members: None Housing: Apartment Alcohol intake: current Alcohol intake frequency: holidays/special occasions only Patient Tobacco Use Status: Never used Tobacco e-Cigarette/Vaping Use: Never Used Second Hand Smoke Exposure: No Current occupational status: employed Current occupation: [employer] / [employer] Sexual orientation: Straight/Heterosexual Gender identity: Female Cognitive needs: No Hearing needs: No Vision needs: No Review of Systems Const All systems reviewed & are unremarkable except as noted in HPI and below Physical Exam Vital Signs: Last Vital Signs Temp 98.8 F 03/17/24 09:47 Pulse 84 03/17/24 09:47 BP 138/86 03/17/24 09:47 Pulse Ox 96 03/17/24 09:47 Oxygen Delivery Method Room Air 03/17/24 09:47 BMI result Body Mass Index 58.6 Const General: no acute distress Nutritional Appearance: obese Orientation/consciousness: patient oriented x3 HEENT Head: Yes normocephalic Ears: external ears normal and TM's normal bilaterally Mouth: moist mucous membranes Resp Effort & Inspection: normal respiratory effort and Actively coughing Auscultation: no crackles, no rales, no rhonchi and wheezes Cardio Heart sounds: S1 normal heart sound present and S2 normal heart sound present Neuro General: patient oriented x3 Assessment & Plan Assessment & Plan (1) Viral respiratory illness: Code(s): J98.8 - Other specified respiratory disorders; B97.89 - Other viral agents as the cause of diseases classified elsewhere Plan: Ordered Prednisone Oral Acetaminophen for pain relief Rest and hydrate well with plenty of fluids. (2) Asthma with acute exacerbation: Code(s): J45.901 - Unspecified asthma with (acute) exacerbation Qualifiers: Asthma persistence: persistent Asthma severity: moderate Qualified Code(s): J45.41 - Moderate persistent asthma with (acute) exacerbation Plan: Ordered Prednisone Oral Acetaminophen for pain relief Rest and hydrate well with plenty of fluids. Medications: New albuterol sulfate 90 mcg/actuation 2 puffs inhalation Q4-6H PRN 6.7 grams 0RF shortness of breath or wheezing B97.89 - Other viral agents as the cause of d iseases classified elsewhere, J45.41 - Moderate persistent asthma with (acute) exacerbation, J98.8 - Other specified respiratory disorders prednisone 50 mg PO DAILY 5 tabs 0RF 5 days B97.89 - Other viral agents as the cause of diseases classified elsewhere, J45.41 - Moderate persistent asthma with (acute) exacerbation, J98.8 - Other specified respiratory disorders Coding Level of Care Code Est Pt Level 3 (73540) Diagnoses Viral respiratory illness J98.8; B97.89 Moderate persistent asthma with acute exacerbation J45.41 Asthma persistence: persistent Asthma severity: moderate Time Spent (min) 15
[2024-03-17 09:47] VITALS: BP 138/86; PULSE 84; TEMP 37.1; O2SAT 96; BMI 58.6
== END 2024-03-17 10:18 | disposition home or self-care (01) ==
PROVIDERS: PCP Internal Medicine; Visit Provider Nurse Practitioner Family
DX: J98.8 Other specified respiratory disorders (principal); B97.89 Other viral agents as the cause of diseases classified elsewhere; J45.41 Moderate persistent asthma with (acute) exacerbation

== ENCOUNTER → 2024-03-17 08:58 | Outpatient (BNVA) | payer OTHER, SELFPAY | PROVIDERS: PCP Internal Medicine; Visit Provider Nurse Practitioner Family | DX: J98.8 Other specified respiratory disorders (principal); B97.89 Other viral agents as the cause of diseases classified elsewhere; J45.41 Moderate persistent asthma with (acute) exacerbation | CPT/HCPCS: 99212 ==

== ENCOUNTER 2024-05-06 10:59 | Outpatient (AMB) | payer OTHER, SELFPAY ==
--- NOTE | 2024-05-06 11:03 | A.OFFPC_ITS ---
Vital Signs 05/06/24 11:09 Height 5 ft 3 in Weight 330 lb 6 oz BMI 58.5 BP 130/78 Blood Pressure Location Lt brachial Position Sitting Pulse 91 Pulse Source Pulse Oximeter Pulse Oximetry (%) 96 Intake Visit Reasons: Annual PE Allergies No Known Allergies Allergy (Verified 05/06/24 11:10) Medication List - Last Reconciled 05/06/24 by Krystle Ocasio MD albuterol sulfate 90 mcg/actuation (ProAir HFA) 1 inh inhalation QID PRN 30 days albuterol sulfate 90 mcg/actuation 2 puffs inhalation Q4-6H PRN atorvastatin 20 mg PO DAILY 90 days budesonide-formoterol 80-4.5 mcg/actuation (Symbicort) 1 inh inhalation BID glipizide-metformin 5-500 mg 1 tab PO DAILY norethindrone (contraceptive) (Twila) 0.35 mg PO DAILY PRN 90 days spironolactone 50 mg PO DAILY tretinoin 0.1% 1 appl topical BEDTIME Tobacco use date assessed: 05/06/24 Dental Screening Dental Screen Date: 05/06/24 Did you have a dental visit in the last 12 months?: Yes Did you have a dental problem in the last 6 months where you did not have access to dental care?: No Was dental information given to patient?: Patient has dentist HPI Annual PE HPI Details Physical exam appointment - The patient is a 38-year-old female - Type 2 Diabetes Mellitus management sh ows improvement, with hemoglobin A1c decreasing to 7.2%. - Persistent mild leukocytosis without o vert symptoms. Hematology referral offered to patient which was declined at this time - Effective management of blood choleste rol levels. - Recent musculoskeletal complaints shilpa yajaira successfully with medication. - Comprehensive discussion concerning re productive planning and medication management. - difficulty losing weight - asthma stable - OBGYN visit up-to-date - labs to be done before next visit in 3 months Health Maintenance - Annual physical examination. - Routine follow-up of hemoglobin A1c le vels due to Type 2 Diabetes Mellitus. - Yearly OBGYN consultations with april barragan follow-up. - Medication review for chronic conditio ns in light of potential planning, with emphasis on transitioning to insulin therapy. - Dermatology consultation for seasonal skin sensitivity. Medications - Atorvastatin 20 mg for Hyperlipidemia - Symbicort for Asthma - Glipizide-Metformin 5-500 mg for Type 2 Diabetes Mellitus - Spironolactone 50 mg for unspecified i ndication Diagnostic results - Labs: Persistent mild leukocytosis; LD L cholesterol at 105 mg/dL; hemoglobin A1c reduced from 8.4% to 7.2%. Patient Instructions - Continue managing diabetes with diet a nd exercise as previously advised. - Consider referral to hematology if joyce vated white blood cell count persists without a clear cause. - Proceed with recommended dermatologica l care for skin sensitivity. - Begin discussing family planning and m edication adjustments with OBGYN. - labs to be done fasting before next vi sit Review of Systems - General: No fever no chills - Neurological: No headaches no dizzin ess - Ear nose throat: No sore throat no hearing difficulty no ear pain - Cardiovascular: No syncope, no chest pain, no palpitations - Gastrointestinal: No nausea vomiting or diarrhea - Endocrine: No polyuria polydipsia no heat intolerance - Genitourinary: No dysuria - Skin: No new complaints Physical Exam General: Cooperative, healthy appearing, comfortable, no acute distress Orientation: Patient oriented x3 Limitations: None Head: Normal to inspection Ears: Within normal limit visually Nose: Normal external nose present Face and sinus: Normal facial exam Eyes: Appearance normal, extraocular movement intact pupils reactive Neck: Normal visual inspection and supple, recent history of neck pain due to muscle spasms, currently resolved Respiratory: Normal respiratory effort and able to speak in complete sentences. Clear to auscultation, no stridor Cardiovascular: S1 and S2 regular into it rhythm Breast exam through OBGYN GI: Normal to inspection. Soft to palpation and nontender Skin: Turgor normal, no acute findings, Neuro: Patient oriented x3, motor sensory intact, balance intact, tandem pass Extremities: Normal to inspection [facility] Medical History Obesity Contact dermatitis Hypertension, essential Surgical History No pertinent past surgical history Family History Father No problems noted. Mother Back injury Substance use disorder Maternal Grandfather No problems noted. Maternal Grandmother HTN (hypertension) Diabetes mellitus Paternal Grandfather No problems noted. Brother No problems noted. Brother No problems noted. Sister No problems noted. Sister No problems noted. Sister No problems noted. Social History Household Members: None Housing: Apartment Alcohol intake: current Alcohol intake frequency: holidays/special occasions only Patient Tobacco Use Status: Never used Tobacco e-Cigarette/Vaping Use: Never Used Second Hand Smoke Exposure: No Current occupational status: employed Current occupation: A / [employer] Sexual orientation: Straight/Heterosexual Gender identity: Female Cognitive needs: No Hearing needs: No Vision needs: No Questionnaire Thrive Questionnaire Date Thrive assessed: 03/12/24 I am a: Patient What is your living situation today?: I have a steady place to live Within the past 12 months, did the food you bought not last and you didn't have the money to get more?: Never true Within the past 12 months, did you worry whether your food would run out before you got money to buy more?: Sometimes True Do you have trouble paying for medicines?: No Do you have trouble getting transportation to medical appointments?: No Do you have trouble paying your heating and electricity bill?: No Do you have trouble taking care of your child, family member or friend?: No Do you have trouble with day-to-day activities such as bathing, preparing meals, shopping, managing finances, etc.?: No Are you currently unemployed and looking for a job?: No Are you interested in more education?: No Please select the resources that you would like help with: None Currently or been in a relationship where the following occur: No concerns reported THRIVE Score: 1 AUDIT C Alcohol Use Questionnaire (AUDIT-C) 1. How often do you have a drink containing alcohol?: Monthly or less 2. How many drinks containing alcohol do you have on a typical day when you are drinking?: 1 or 2 3. How often do you have six or more drinks on one occasion?: Never Total Score: 1 Score Reviewed/Action Taken: Yes BARRY-7 AMB Questionnaire BARRY-7 Date BARRY - 7 assessed: 12/09/23 Source: Developed by Drs. Rell Trivedi, Nalini Abel, Dilip Solo and colleagues, with an educational karson from [employer]. Physical exam (Primary Care) Vital Signs: Last Vital Signs Pulse 91 05/06/24 11:09 BP 130/78 05/06/24 11:09 Pulse Ox 96 05/06/24 11:09 BMI result Body Mass Index 58.5 Tobacco/Smoking Status: Tobacco use Status Tobacco use date assessed 05/06/24 05/06/24 11:11 Patient Tobacco Use Status Never used Tobacco 05/06/24 11:04 e-Cigarette/Vaping Use Never Used 05/06/24 11:04 Thrive Assessment: Date of Thrive Assessment Date Thrive assessed 03/12/24 05/06/24 11:04 Currently or been in a relationship where the following occur: No concerns reported Coding Level of Care Code Est Pt Level 3 (46513) Est Pt Prev Care 18-39y(19788) Diagnoses Encounter for general adult medical examination with abnormal findings Z00.01 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 Leukocytosis, unspecified type D72.829 Leukocytosis type: unspecified Hypertension, essential 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, managed as type 2 E13.9 Morbid obesity due to excess calories E66.01 Assessment & Plan Assessment & Plan (1) Encounter for general adult medical examination with abnormal findings: Code(s): Z00.01 - Encounter for general adult medical examination with abnormal findings Category: Medical (2) 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 - Fear of injections and transfusions Category: Medical (3) Leucocytosis: Code(s): D72.829 - Elevated white blood cell count, unspecified Category: Medical Qualifiers: Leukocytosis type: unspecified Qualified Code(s): D72.829 - Elevated white blood cell count, unspecified (4) Hypertension, essential: Code(s): I10 - Essential (primary) hypertension Category: Medical (5) Diabetes 1.5, managed as type 2: Code(s): E13.9 - Other specified diabetes mellitus without complications Category: Medical (6) Morbid obesity due to excess calories: Code(s): E66.01 - Morbid (severe) obesity due to excess calories Category: Medical Plan Physical exam appointment - The patient is a 38-year-old female - Type 2 Diabetes Mellitus management shows improvement, with hemoglobin A1c decreasing to 7.2%. - Persistent mild leukocytosis without overt symptoms. Hematology referral offered to patient which was declined at this time - Effective management of blood cholesterol levels. - Recent musculoskeletal complaints treated successfully with medication. - Comprehensive discussion concerning reproductive planning and medication management. - difficulty losing weight - asthma stable - OBGYN visit up-to-date - labs to be done before next visit in 3 months Health Maintenance - Annual physical examination. - Routine follow-up of hemoglobin A1c levels due to Type 2 Diabetes Mellitus. - Yearly OBGYN consultations with planned follow-up. - Medication review for chronic conditions in light of potential planning, with emphasis on transitioning to insulin therapy. - Dermatology consultation for seasonal skin sensitivity. Medications - Atorvastatin 20 mg for Hyperlipidemia - Symbicort for Asthma - Glipizide-Metformin 5-500 mg for Type 2 Diabetes Mellitus - Spironolactone 50 mg for unspecified indication Diagnostic results - Labs: Persistent mild leukocytosis; LDL cholesterol at 105 mg/dL; hemoglobin A1c reduced from 8.4% to 7.2%. Patient Instructions - Continue managing diabetes with diet and exercise as previously advised. - Consider referral to hematology if elevated white blood cell count persists without a clear cause. - Proceed with recommended dermatological care for skin sensitivity. - Begin discussing family planning and medication adjustments with OBGYN. - labs to be done fasting before next visit Orders: Orders Complete Blood Count Auto Diff Today E13.9 - Other specified diabetes mellitus without complications, E66.01 - Morbid (severe) obesity due to excess calories, F40.231 - Fear of injections and transfusions, I10 - Essential (primary) hypertension, Z00.01 - Encounter for general adult medical examination with abnormal findings Comprehensive [place]. Panel Fast Today E13.9 - Other specified diabetes mellitus without complications, E66.01 - Morbid (severe) obesity due to excess calories, F40.231 - Fear of injections and transfusions, I10 - Essential (primary) hypertension, Z00.01 - Encounter for general adult medical examination with abnormal findings Lipid Panel Today E13.9 - Other specified diabetes mellitus without complications, E66.01 - Morbid (severe) obesity due to excess calories, F40.231 - Fear of injections and transfusions, I10 - Essential (primary) hypertension, Z00.01 - Encounter for general adult medical examination with abnormal findings Hemoglobin A1c Today E13.9 - Other specified diabetes mellitus without complications, E66.01 - Morbid (severe) obesity due to excess calories, F40.231 - Fear of injections and transfusions, I10 - Essential (primary) hypertension, Z00.01 - Encounter for general adult medical examination with abnormal findings
[2024-05-06 11:09] VITALS: BP 130/78; PULSE 91; O2SAT 96; BMI 58.5
== END 2024-05-06 11:37 | disposition home or self-care (01) ==
PROVIDERS: PCP Internal Medicine; Visit Provider Internal Medicine
DX: Z00.00 Encounter for general adult medical examination without abnormal findings (principal); E13.9 Other specified diabetes mellitus without complications; E66.01 Morbid (severe) obesity due to excess calories; Z68.43 Body mass index [BMI] 50.0-59.9, adult; F40.231 Fear of injections and transfusions; D72.829 Elevated white blood cell count, unspecified; I10 Essential (primary) hypertension

== ENCOUNTER → 2024-05-06 10:59 | Outpatient (BNVA) | payer OTHER, SELFPAY | PROVIDERS: PCP Internal Medicine; Visit Provider Internal Medicine | DX: Z00.01 Encounter for general adult medical examination with abnormal findings (principal); F40.231 Fear of injections and transfusions; D72.829 Elevated white blood cell count, unspecified; I10 Essential (primary) hypertension; E13.9 Other specified diabetes mellitus without complications; E66.01 Morbid (severe) obesity due to excess calories; Z68.43 Body mass index [BMI] 50.0-59.9, adult; Z71.3 Dietary counseling and surveillance | CPT/HCPCS: 99395 ==

== ENCOUNTER 2024-08-12 09:23 | Outpatient (AMB) | payer OTHER, SELFPAY ==
[2024-08-12 09:26] VITALS: BP 130/82; PULSE 94; TEMP 36.9; O2SAT 97; BMI 59.2
--- NOTE | 2024-08-12 09:26 | MHC.OFFWIV ---
Intake Vital Signs 08/12/24 09:26 Height 5 ft 3 in Weight 334 lb 4 oz BMI 59.2 BP 130/82 Blood Pressure Location Rt brachial Position Sitting Pulse 94 Pulse Source Pulse Oximeter Temp 98.5 F Temp Source Oral Pulse Oximetry (%) 97 Oxygen Delivery Method Room Air Intake Visit Reasons: EP ? strep throat Intake Note: Pt presents to the office today for c/o sore throat,congestion, b/l ear ache that started about 4 days ago. Patient Tobacco Use Status: Never used Tobacco Allergies No Known Allergies Allergy (Verified 08/12/24 09:29) HPI HPI Comments History of Present Illness Details History - The patient is a 38-year-old female presenting with a sore throat x3 days. - The sore throat began on Thursday after attending a workshop with ten other people. - The patient describes the sore throat as feeling like sandpaper when drinking water. - Symptoms progressed to include postnasal drip and nasal congestion by . - The patient reports no fever but experiences night sweats. - There is a history of asthma, and the patient uses Symbicort daily with albuterol as needed. - The patient has not used albuterol recently. Physical Exam General: Cooperative, healthy appearing, comfortable and no acute distress Orientation/consciousness: Patient oriented x3 Limitations: No limitations Head: Normal to inspection Ears: Hearing grossly normal bilaterally, external ears normal and TM's normal bilaterally Nose: Normal external nose present, Normal nares present and No nasal discharge present Face and sinus: Normal facial exam and Yes sinuses nontender Mouth: Normal oral and palatal mucosa present and moist mucous membranes Throat: Yes tonsils normal, Yes uvula midline. Posterior oropharynx erythema, no exudates Eyes: Appearance normal, both eyes and all related structures Neck: Normal visual inspection, but patient reports tenderness and swelling in the throat area Respiratory: slight wheeze RLL, remainder is clear to auscultation bilaterally. Normal respiratory effort, able to speak in complete sentences, Actively coughing, no respiratory distress, not tachypneic, no tripod positioning and no use of accessory muscles. Cardiovascular: Regular rate and rhythm. Normal S1 and S2 Skin: No rashes or lesions noted Neuro: Patient oriented x3 Extremities: Normal to inspection and Yes no clubbing, cyanosis or edema [facility] Medical History Obesity Contact dermatitis Hypertension, essential Surgical History No pertinent past surgical history Family History Father No problems noted. Mother Back injury Substance use disorder Maternal Grandfather No problems noted. Maternal Grandmother HTN (hypertension) Diabetes mellitus Paternal Grandfather No problems noted. Brother No problems noted. Brother No problems noted. Sister No problems noted. Sister No problems noted. Sister No problems noted. Social History Household Members: None Housing: Apartment Alcohol intake: current Alcohol intake frequency: holidays/special occasions only Patient Tobacco Use Status: Never used Tobacco e-Cigarette/Vaping Use: Never Used Second Hand Smoke Exposure: No Current occupational status: employed Current occupation: [employer] Sexual orientation: Straight/Heterosexual Gender identity: Female Cognitive needs: No Hearing needs: No Vision needs: No Review of Systems Const All systems reviewed & are unremarkable except as noted in HPI and below Physical Exam Vital Signs: Last Vital Signs Temp 98.5 F 08/12/24 09:26 Pulse 94 08/12/24 09:26 BP 130/82 08/12/24 09:26 Pulse Ox 97 08/12/24 09:26 Oxygen Delivery Method Room Air 08/12/24 09:26 BMI result Body Mass Index 59.2 Results AMB Rapid Strep AMB Rapid Strep Negative Last Edit by Melina Gould CMA on 08/12/24 09:39 Results Reviewed Results Reviewed: Laboratory Last Values Strep Scn Rapid Clinic Negative 08/12/24 09:35 Assessment & Plan Assessment & Plan (1) Pharyngitis: Code(s): J02.9 - Acute pharyngitis, unspecified Qualifiers: Pharyngitis/tonsillitis etiology: unspecified etiology Qualified Code(s): J02.9 - Acute pharyngitis, unspecified Plan: VSS, pt well appearing and PE unremarkable. Rapid strep is negative; COVID, flu, and RSV swabs with results pending. - Prescribe antibiotics for strep throat if symptoms do not improve by the next 1-2 days. - Advise use of albuterol inhaler every 6-8 hours to manage slight wheezing. - Recommend warm salt water rinses for throat discomfort. Patient was informed and verbally consented to the use of an ambient scribe for clinic note documentation during this visit Orders: Orders SARS-CoV2/FLU/RSV Today R09.89 - Other specified symptoms and signs involving the circulatory and respiratory systems AMB Rapid Strep Screen Today Z13.9 - Encounter for screening, unspecified Medications: New amoxicillin 500 mg PO Q12H 20 tabs 0RF Coding Level of Care Code Est Pt Level 3 (08496) Diagnoses Pharyngitis, unspecified etiology J02.9 Pharyngitis/tonsillitis etiology: unspecified etiology
== END 2024-08-12 09:57 | disposition home or self-care (01) ==
PROVIDERS: PCP Internal Medicine; Visit Provider Physician Assistant
DX: Z13.9 Encounter for screening, unspecified (principal); J02.9 Acute pharyngitis, unspecified

== ENCOUNTER 2024-08-12 09:23 | Outpatient (REF) | payer OTHER, SELFPAY ==
[2024-08-12 14:07] LABS: Influenza A PCR NEGATIVE (Negative); Influenza B PCR NEGATIVE (Negative); Resp Syncy Virus RNA Qual PCR NEGATIVE (Negative); SARS COV2 PCR INHOUSE NEGATIVE (Negative)
== END 2024-08-12 09:24 | disposition home or self-care (01) ==
LOC: HO.LAB 09:23
PROVIDERS: Physician Assistant; PCP Internal Medicine
DX: J02.9 Acute pharyngitis, unspecified (principal); R09.89 Other specified symptoms and signs involving the circulatory and respiratory systems
CPT/HCPCS: 0241U; 87880; 99212

== ENCOUNTER 2024-08-23 10:29 | Outpatient (AMB) | payer OTHER, SELFPAY ==
--- NOTE | 2024-08-23 11:01 | MHC.OFFWIV ---
Intake Vital Signs 08/23/24 11:02 Height 5 ft 3 in Weight 336 lb 4 oz BMI 59.6 BP 142/100 H Blood Pressure Location Rt brachial Position Sitting Pulse 82 Pulse Source Pulse Oximeter Temp 99.1 F Temp Source Oral Pulse Oximetry (%) 97 Oxygen Delivery Method Room Air Intake Visit Reasons: EP ? Bronchitis Patient Tobacco Use Status: Never used Tobacco Dobby Loom Fixer Required: No Allergies No Known Allergies Allergy (Verified 08/23/24 11:09) Do you need a note to return to daycare/school/sports/work: Yes HPI HPI Comments History of Present Illness Details History - The patient is a 38-year-old female presenting with bronchitis. - She reports a recurrence of bronchitis, with a recent flare-up after a previous visit a couple of weeks ago. - The emergency inhaler provided limited relief, and she has a history of being prone to bronchitis and streptococcal pharyngitis. - A 10-day course of amoxicillin was completed for suspected streptococcal pharyngitis, but bronchitis symptoms persisted. - Albuterol inhaler usage increased from every six to eight hours to every four hours as symptoms worsened. - Environmental changes, such as extreme cold and heat, have exacerbated her symptoms, and she has been using Mucinex for mucus expectoration. - The patient does not have a nebulizer at home and expressed interest in obtaining one for better management of her symptoms. - She has been wheezing and having a cough. - She denies fever, chills, chest pain, abd pain, n/v/d, sore throat, ear pain, GERMAN, or dizziness. - Denies sick contacts. Physical Exam General: Cooperative, healthy appearing, uncomfortable, no acute distress and well developed Orientation: Patient oriented x3 Mouth: normal, moist oral mucosa Neck: Normal visual inspection and Yes full ROM. No lymphadenopathy noted. Respiratory: Able to speak in complete sentences. Wheezes noted. No rales or rhonchi noted. Cardiovascular: RRR, no m/r/g noted. Normal S1 and S2 Skin: No rashes or lesions noted. Patient was informed and verbally consented to the use of an ambient scribe for clinic note documentation during this visit [facility] Medical History Obesity Contact dermatitis Hypertension, essential Surgical History No pertinent past surgical history Family History Father No problems noted. Mother Back injury Substance use disorder Maternal Grandfather No problems noted. Maternal Grandmother HTN (hypertension) Diabetes mellitus Paternal Grandfather No problems noted. Brother No problems noted. Brother No problems noted. Sister No problems noted. Sister No problems noted. Sister No problems noted. Social History Household Members: None Housing: Apartment Alcohol intake: current Alcohol intake frequency: holidays/special occasions only Patient Tobacco Use Status: Never used Tobacco e-Cigarette/Vaping Use: Never Used Second Hand Smoke Exposure: No Current occupational status: employed Current occupation: [employer] / [employer] Sexual orientation: Straight/Heterosexual Gender identity: Female Cognitive needs: No Hearing needs: No Vision needs: No Review of Systems Const All systems reviewed & are unremarkable except as noted in HPI and below Physical Exam Vital Signs: Last Vital Signs Temp 99.1 F 08/23/24 11:02 Pulse 82 08/23/24 11:02 BP 142/100 H 08/23/24 11:02 Pulse Ox 97 08/23/24 11:02 Oxygen Delivery Method Room Air 08/23/24 11:02 BMI result Body Mass Index 59.6 Office Procedures Nebulizer Treatment Nebulizer Treatment [id number] RX initial, or Nebulizer Subsequent Treatment Office Meds ipratropium 0.5 mg-albuterol 3 mg (2.5 mg base)/3 mL nebulization soln Performing Provider: Leana Florian PA-C Performing Location: [facility] Administered by: Leana Florian PA-C on 08/23/24 11:28 Dose Route Admin Location Dispensed Lot Number Expiration Date [facility] Casework Specialist 3 mL inhalation 3 mL [id number] 04/29/25 98921-997-16 [employer] Assessment & Plan Assessment & Plan (1) Bronchitis: Code(s): J40 - Bronchitis, not specified as acute or chronic Plan Most likely bronchitis vs URI vs asthma exacerbation Plan - Use albuterol as needed - prednisone burst for 5 days - will request a nebulizer from her PCP - continue with Mucinex, Tylenol, or Motrin - follow up with PCP Orders: Orders AMB Nebulizer Treatment Today J40 - Bronchitis, not specified as acute or chronic Medications: New prednisone 50 mg PO QAM 5 tabs 0RF Coding Level of Care Code Est Pt Level 4 (62918) Diagnoses Bronchitis J40 CPT Codes Nebulizer Treatment - Nebulizer Treatment, initial or subsequent: [id number] RX initial, or Nebulizer Subsequent Treatment ([id number])
[2024-08-23 11:02] VITALS: BP 142/100; PULSE 82; TEMP 37.3; O2SAT 97; BMI 59.6
== END 2024-08-23 12:40 | disposition home or self-care (01) ==
PROVIDERS: PCP Internal Medicine; Visit Provider Physician Assistant Medical
DX: J40 Bronchitis, not specified as acute or chronic (principal)

== ENCOUNTER → 2024-08-23 10:29 | Outpatient (BNVA) | payer OTHER, SELFPAY | PROVIDERS: PCP Internal Medicine; Visit Provider Physician Assistant Medical | DX: J40 Bronchitis, not specified as acute or chronic (principal) | CPT/HCPCS: 94640; 99212 ==

== ENCOUNTER 2024-09-15 13:37 | Outpatient (AMB) | payer OTHER, SELFPAY ==
[2024-09-15 13:56] VITALS: BP 138/100; PULSE 83; TEMP 36.9; O2SAT 97; BMI 59.2
--- NOTE | 2024-09-15 13:56 | AM.OFFWIN_ITS ---
Intake Vital Signs 09/15/24 13:56 Height 5 ft 3 in Weight 334 lb BMI 59.2 BP 138/100 H Blood Pressure Location Rt brachial Position Sitting Pulse 83 Pulse Source Pulse Oximeter Temp 98.4 F Temp Source Oral Pulse Oximetry (%) 97 Oxygen Delivery Method Room Air Intake Visit Reasons: EP-Bronchitis Intake Note: presents with recurring productive cough and sinus congestion for 2 weeks Patient Tobacco Use Status: Never used Tobacco Allergies No Known Allergies Allergy (Verified 09/15/24 14:02) Do you need a note to return to daycare/school/sports/work: No HPI EP-Bronchitis HPI Details This is a 39-year-old female patient who presents to the walk-in clinic today with a reported bronchitis/asthma exacerbation. She states that these have been more frequent over the last several months. She typically does well with prednisone and nebulizer treatment. She is maintained at home on Symbicort as well as a rescue inhaler, which she has been using. She would like to have an at-home nebulizer, and has an appointment with PCC Dr. Ocasio here next week, and will request prescription for this at that time. She reports a 2 week history of worsening productive cough with thick sputum, sinus tenderness, and intermittent shortness of breath/wheezing. Denies fevers/chills. Denies exposure to sick contacts. [facility] Medical History Obesity Contact dermatitis Hypertension, essential Surgical History No pertinent past surgical history Family History Father No problems noted. Mother Back injury Substance use disorder Maternal Grandfather No problems noted. Maternal Grandmother HTN (hypertension) Diabetes mellitus Paternal Grandfather No problems noted. Brother No problems noted. Brother No problems noted. Sister No problems noted. Sister No problems noted. Sister No problems noted. Social History Household Members: None Housing: Apartment Alcohol intake: current Alcohol intake frequency: holidays/special occasions only Patient Tobacco Use Status: Never used Tobacco e-Cigarette/Vaping Use: Never Used Second Hand Smoke Exposure: No Current occupational status: employed Current occupation: [employer] Sexual orientation: Straight/Heterosexual Gender identity: Female Cognitive needs: No Hearing needs: No Vision needs: No Review of Systems Const All systems reviewed & are unremarkable except as noted in HPI and below Physical Exam Vital Signs: Last Vital Signs Temp 98.4 F 09/15/24 13:56 Pulse 83 09/15/24 13:56 BP 138/100 H 09/15/24 13:56 Pulse Ox 97 09/15/24 13:56 Oxygen Delivery Method Room Air 09/15/24 13:56 BMI result Body Mass Index 59.2 Const General: no acute distress HEENT Head: Yes normal to inspection Ears: hearing grossly normal bilaterally Neck Neck: Yes no lymphadenopathy Resp Effort & Inspection: normal respiratory effort and Actively coughing Quality: productive Auscultation: wheezes expiratory wheezes and upper bilaterally Cardio Rate: regular rate Rhythm: regular rhythm Skin General skin exam: no rashes or lesions noted Extrem General: Yes capillary refill normal and Yes no clubbing, cyanosis or edema Psych Appearance: grossly normal Mental Status: mental status grossly normal Speech and movement: Normal speech and movement present Office Procedures Nebulizer Treatment Nebulizer Treatment 21216-Nsygvnpvr/MDI RX initial, or Nebulizer Subsequent Treatment Office Meds ipratropium 0.5 mg-albuterol 3 mg (2.5 mg base)/3 mL nebulization soln Performing Provider: STEPHANIE Seth [place] [facility] [place] [facility] Administered by: Elvi Wick RN on 09/15/24 14:53 Dose Route Admin Location Dispensed Lot Number Expiration Date [facility] Milker Machine 3 mL inhalation 3 mL [id number] 04/29/25 71047-094-35 [facility] Assessment & Plan Assessment & Plan (1) Acute asthmatic bronchitis: Code(s): J45.909 - Unspecified asthma, uncomplicated Plan: Nebulizer treatment done in the office today with good effect, significantly less wheezing upon auscultation following treatment. Will start on a short course of antibiotics and prednisone. She can continue to utilize inhalers at home, and will discuss possibility of a nebulizer machine for home use when she meets with her PCP next week. If she develops any worsening shortness of breath or fevers, she can return to the clinic or go to the emergency department for further evaluation. She verbalizes understanding and agrees to plan. Orders: Orders AMB Nebulizer Treatment Today J45.909 - Unspecified asthma, uncomplicated Medications: New azithromycin For 250 mg dose pack: take 500 mg today (day 1), then 250 mg for 4 days (days 2-5) PO 6 tabs 0RF J45.909 - Unspecified asthma, uncomplicated prednisone 40 mg (2 x 20 mg) PO DAILY 10 tabs 0RF 5 days J45.909 - Unspecified asthma, uncomplicated Coding Level of Care Code Est Pt Level 4 (15932) Diagnoses Acute asthmatic bronchitis J45.909 CPT Codes Nebulizer Treatment - Nebulizer Treatment, initial or subsequent: 91969- Nebulizer/MDI RX initial, or Nebulizer Subsequent Treatment ([id number])
== END 2024-09-15 15:07 | disposition home or self-care (01) ==
PROVIDERS: PCP Internal Medicine; Visit Provider Nurse Practitioner Family
DX: J45.909 Unspecified asthma, uncomplicated (principal)

== ENCOUNTER → 2024-09-15 13:37 | Outpatient (BNVA) | payer OTHER, SELFPAY | PROVIDERS: PCP Internal Medicine | DX: J45.909 Unspecified asthma, uncomplicated (principal) | CPT/HCPCS: 94640; 99212 ==

== ENCOUNTER 2024-09-20 12:01 | Outpatient (REF) | payer OTHER, SELFPAY ==
[2024-09-20 16:26] LABS: Hematocrit 39.5 % (37.0-47.0); Hemoglobin 13.2 g/dl (12.0-16.0); Mean Corpuscular HGB Conc 33.4 g/dl (31.0-35.0); Mean Corpuscular Hemoglobin 27.3 pg (27.0-33.0); Mean Corpuscular Volume 81.8 fL (80.0-98.0); NRBC Abs Auto 0.000 X10*3/uL (0.0-0.012); NRBC Pct Auto 0.0 /100WBC (0.0-0.2); Platelet Count 284 X10*3/uL (160-400); Red Blood Count 4.83 X10*6/uL (4.20-5.50); White Blood Count 15.6 X10*3/uL (4.8-10.8)
[2024-09-20 16:35] LABS: Alanine Aminotransferase 25 U/L (0-31); Albumin Level 4.2 g/dL (3.5-5.0); Alkaline Phosphatase 87 U/L (39-117); Anion Gap 12 (12-20); Aspartate Amino Transferase 20 U/L (5-31); Blood Urea Nitrogen 13 mg/dL (9-16); Calcium 9.5 mg/dL (8.4-10.2); Carbon Dioxide 30 mmol/L (22-29); Chloride 103 mmol/L (96-108); Cholesterol 174 mg/dL (<200); Estimated Glomerular Filt Rate > 60; HDL Cholesterol 59 mg/dL (>40); Potassium 3.7 mmol/L (3.3-5.1); Sodium 141 mmol/L (135-145); Total Protein 7.7 g/dL (6.5-8.0); Triglycerides 100 mg/dL (<150)
[2024-09-20 16:39] LABS: Hemoglobin A1C 283.5361 umol/L; Total Hemoglobin (HGBA1C) 3530.0936 umol/L
[2024-09-20 17:30] LABS: Atypical Lymph Absolute Manual 1.1 x10*3/uL; Atypical Lymphs Percent Manual 7 % (0-6); Band Neutrophils Percent 0 % (3-5); Eosinophils Absolute Manual 0.6 X10*3/uL (0.0-0.4); Eosinophils Percent Manual 4 % (0-4); Lymphocytes Absolute Manual 5.0 X10*3/uL (1.2-4.9); Lymphocytes Percent Manual 32 % (20-40); Monocytes Absolute Manual 1.2 X10*3/uL (0.1-1.2); Monocytes Percent Manual 8 % (2-11); Neutrophils Absolute Manual 7.6 X10*3/uL (2.0-8.3); Neutrophils Percent Manual 49 % (45-73)
[2024-09-20 17:31] LABS: Burr Cells 1+ (0-2) /OIF; RBC Morphology NOTED
== END 2024-09-20 12:02 | disposition home or self-care (01) ==
LOC: HO.HMGCLDS 12:01
PROVIDERS: PCP Internal Medicine; Visit Provider Internal Medicine
DX: J45.40 Moderate persistent asthma, uncomplicated (principal); F40.231 Fear of injections and transfusions; D72.829 Elevated white blood cell count, unspecified; I10 Essential (primary) hypertension; E13.9 Other specified diabetes mellitus without complications; E66.01 Morbid (severe) obesity due to excess calories; Z68.43 Body mass index [BMI] 50.0-59.9, adult; Z71.3 Dietary counseling and surveillance
CPT/HCPCS: 36415; 80053; 80061; 83036; 85007; 85025; 85027; 96127; 99212

== ENCOUNTER 2024-09-20 12:01 | Outpatient (AMB) | payer OTHER, SELFPAY ==
[2024-09-20 12:03] VITALS: BP 132/90; PULSE 86; TEMP 36.8; O2SAT 97; BMI 59.2
--- NOTE | 2024-09-20 12:03 | A.OFFPC_ITS ---
Vital Signs 09/20/24 12:03 Height 5 ft 3 in Weight 334 lb BMI 59.2 BP 132/90 H Blood Pressure Location Lt brachial Position Sitting Pulse 86 Pulse Source Pulse Oximeter Temp 98.2 F Temp Source Oral Pulse Oximetry (%) 97 Oxygen Delivery Method Room Air Intake Visit Reasons: 4 months f/up Laboratory Manager Required: No Allergies No Known Allergies Allergy (Verified 09/20/24 12:03) Medication List - Last Reconciled 09/20/24 by Krystle Ocasio MD albuterol sulfate 90 mcg/actuation 2 puffs inhalation Q4-6H PRN atorvastatin 20 mg PO DAILY 90 days budesonide-formoterol 80-4.5 mcg/actuation (Symbicort) 1 inh inhalation BID glipizide-metformin 5-500 mg 1 tab PO DAILY PNV,calcium 53-sxcg-pwutv acid 27 mg iron- 1 mg ( Vitamins Plus Low Iro n) 1 tab PO DAILY 90 days Tobacco use date assessed: 05/06/24 Dental Screening Dental Screen Date: 05/06/24 HPI 4 months f/up HPI Details Regular follow-up appointment - The patient is a 39-year-old female Recovering from sinus infection and bronchitis. - Symptoms began prior to the urgent car e visit last and included persistent sinus congestion and subsequent bronchitis with significant mucous production. - Initially sought urgent care consultat ion on the , where she was prescribed prednisone and azithromycin. - Noted considerable symptomatic improve ment with prednisone, which improved airway patency immediately, and an albuterol nebulizer treatment was administered. - Additionally, the patient's diabetes h istory suggests an A1c of 7.2% recorded in March, and efforts in dietary management include reducing carbohydrate intake and increasing proteins, vegetables, and water consumption. - asthma is stable requesting updracristina peter prescription for the days when she has infection we will address that - blood pressure is slightly 132/90 Medical History: - Type 2 Diabetes Mellitus - History of recurrent respiratory infec tions/bronchitis - Asthma - morbid obesity Medications: - Atorvastatin, 20 mg for hyperlipidemia - Symbicort for respiratory management - Glipizide for diabetes management - Metformin for diabetes management - Albuterol for asthma management Social History: - The patient is actively managing her d iabetes with dietary modifications including avoiding sandwiches and high-carb meals, consuming meals like carrots with tzatziki and fruit with nuts. - She has stopped taking control t o explore family planning options. - Patient reports recent emotional acevedo e due to the loss of her pet, followed by the introduction of a new one. Diagnostic Results: - Labs: Previous Complete Blood Count (C BC) conducted in March; Hemoglobin A1c was recorded at 7.2%. Problem List - Bronchitis improving - Type 2 Diabetes Mellitus - moderate persistent asthma - elevated blood pressure - morbid obesity - needle phobia - lipid disorder Patient Instructions - Continue current prescribed medication s including prednisone and azithromycin. - Use the nebulizer machine as instructe d for respiratory relief. - Maintain dietary management including reducing carbohydrates and increasing water intake. - Monitor blood sugar levels and continu e diabetes medications as prescribed. - Plan to have blood work completed for a current assessment. Review of Systems - General: No fever no chills - Neurological: No headaches no dizziness - Ear nose throat: No sore throat no hearing difficulty no ear pain - Cardiovascular: No syncope, no chest pain, no palpitations - Gastrointestinal: No nausea vomiting or diarrhea - Endocrine: No polyuria polydipsia no heat intolerance - Genitourinary: No dysuria , no blood in urine Physical Exam General: No acute distress HEENT: No acute findings Neck: Supple Respiratory system: Lungs are clear, able to talk in full sentences, no audible wheeze Cardiovascular: S1-S2 regular in rate and rhythm Gastrointestinal: No pain Extremities: No new findings TREE TRIMMING LINE TECHNICIAN: Alert awake oriented x3 motor sensory intact Skin: Normal turgor [facility] Medical History Obesity Contact dermatitis Hypertension, essential Surgical History No pertinent past surgical history Family History Father No problems noted. Mother Back injury Substance use disorder Maternal Grandfather No problems noted. Maternal Grandmother HTN (hypertension) Diabetes mellitus Paternal Grandfather No problems noted. Brother No problems noted. Brother No problems noted. Sister No problems noted. Sister No problems noted. Sister No problems noted. Social History Household Members: None Housing: Apartment Alcohol intake: current Alcohol intake frequency: holidays/special occasions only Patient Tobacco Use Status: Never used Tobacco e-Cigarette/Vaping Use: Never Used Second Hand Smoke Exposure: No Current occupational status: employed Current occupation: [employer] Sexual orientation: Straight/Heterosexual Gender identity: Female Cognitive needs: No Hearing needs: No Vision needs: No Questionnaire Thrive Questionnaire Date Thrive assessed: 09/20/24 I am a: Patient What is your living situation today?: I have a steady place to live Within the past 12 months, did the food you bought not last and you didn't have the money to get more?: Never true Within the past 12 months, did you worry whether your food would run out before you got money to buy more?: Sometimes True Do you have trouble paying for medicines?: No Do you have trouble getting transportation to medical appointments?: No Do you have trouble paying your heating and electricity bill?: No Do you have trouble taking care of your child, family member or friend?: No Do you have trouble with day-to-day activities such as bathing, preparing meals, shopping, managing finances, etc.?: No Are you currently unemployed and looking for a job?: No Are you interested in more education?: No Please select the resources that you would like help with: None Currently or been in a relationship where the following occur: No concerns reported THRIVE Score: 1 BARRY-7 AMB Questionnaire BARRY-7 Date BARRY - 7 assessed: 09/20/24 Feeling nervous, anxious, or on edge: 0 = Not at all Not being able to stop or control worryin = Not at all Worrying too much about different things: 0 = Not at all Trouble relaxin = Not at all Being so restless that it is hard to sit still: 0 = Not at all Becoming easily annoyed or irritable: 0 = Not at all Feeling afraid as if something awful might happen: 0 = Not at all Total BARRY-7 score (0-4 normal; 5-9 mild; 10-14 moderate; 15-21 severe): 0 Source: Developed by Drs. Rell Trivedi, Nalini Abel, Dilip Solo and colleagues, with an educational karson from [employer]. BARRY-7 Assessment Billing BARRY-7 Assessment Tool: BARRY-7 Assessment 89209 Physical exam (Primary Care) Vital Signs: Last Vital Signs Temp 98.2 F 09/20/24 12:03 Pulse 86 09/20/24 12:03 BP 132/90 H 09/20/24 12:03 Pulse Ox 97 09/20/24 12:03 Oxygen Delivery Method Room Air 09/20/24 12:03 BMI result Body Mass Index 59.2 Tobacco/Smoking Status: Tobacco use Status Tobacco use date assessed 05/06/24 09/20/24 12:03 Patient Tobacco Use Status Never used Tobacco 09/20/24 12:03 e-Cigarette/Vaping Use Never Used 09/20/24 12:03 Thrive Assessment: Date of Thrive Assessment Date Thrive assessed 09/20/24 09/20/24 12:05 Currently or been in a relationship where the following occur: No concerns reported Coding Level of Care Code Est Pt Level 4 (31450) Complex EM visit Add On G2211 Diagnoses Moderate persistent asthma without complication J45.40 Asthma complication type: uncomplicated 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 Leukocytosis, unspecified type D72.829 Leukocytosis type: unspecified Hypertension, essential 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, managed as type 2 E13.9 Morbid obesity due to excess calories E66.01 Additional Codes BARRY-7 Assessment Billing - BARRY-7 Assessment Tool: BARRY-7 Assessment 61783 ([id number]) Assessment & Plan Assessment & Plan (1) Asthma, moderate persistent: Code(s): J45.40 - Moderate persistent asthma, uncomplicated Category: Medical Qualifiers: Asthma complication type: uncomplicated Qualified Code(s): J45.40 - Moderate persistent asthma, uncomplicated (2) 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 - Fear of injections and transfusions Category: Medical (3) Leucocytosis: Code(s): D72.829 - Elevated white blood cell count, unspecified Category: Medical Qualifiers: Leukocytosis type: unspecified Qualified Code(s): D72.829 - Elevated white blood cell count, unspecified (4) Hypertension, essential: Code(s): I10 - Essential (primary) hypertension Category: Medical (5) Diabetes 1.5, managed as type 2: Code(s): E13.9 - Other specified diabetes mellitus without complications Category: Medical (6) Morbid obesity due to excess calories: Code(s): E66.01 - Morbid (severe) obesity due to excess calories Category: Medical Plan Regular follow-up appointment - The patient is a 39-year-old female Recovering from sinus infection and bronchitis. - Symptoms began prior to the urgent care visit last and included persistent sinus congestion and subsequent bronchitis with significant mucous production. - Initially sought urgent care consultation on the , where she was prescribed prednisone and azithromycin. - Noted considerable symptomatic improvement with prednisone, which improved airway patency immediately, and an albuterol nebulizer treatment was administered. - Additionally, the patient's diabetes history suggests an A1c of 7.2% recorded in March, and efforts in dietary management include reducing carbohydrate intake and increasing proteins, vegetables, and water consumption. - asthma is stable requesting updraft machine prescription for the days when she has infection we will address that - blood pressure is slightly 132/90 Medical History: - Type 2 Diabetes Mellitus - History of recurrent respiratory infections/bronchitis - Asthma - morbid obesity Medications: - Atorvastatin, 20 mg for hyperlipidemia - Symbicort for respiratory management - Glipizide for diabetes management - Metformin for diabetes management - Albuterol for asthma management Social History: - The patient is actively managing her diabetes with dietary modifications including avoiding sandwiches and high-carb meals, consuming meals like carrots with tzatziki and fruit with nuts. - She has stopped taking control to explore family planning options. - Patient reports recent emotional change due to the loss of her pet, followed by the introduction of a new one. Diagnostic Results: - Labs: Previous Complete Blood Count (CBC) conducted in March; Hemoglobin A1c was recorded at 7.2%. Problem List - Bronchitis improving - Type 2 Diabetes Mellitus - moderate persistent asthma - elevated blood pressure - morbid obesity - needle phobia - lipid disorder Patient Instructions - Continue current prescribed medications including prednisone and azithromycin. - Use the nebulizer machine as instructed for respiratory relief. - Maintain dietary management including reducing carbohydrates and increasing water intake. - Monitor blood sugar levels and continue diabetes medications as prescribed. - Plan to have blood work completed for a current assessment.
== END 2024-09-20 12:26 | disposition home or self-care (01) ==
LOC: HO.HMCC 12:02
PROVIDERS: PCP Internal Medicine; Visit Provider Internal Medicine
DX: E13.9 Other specified diabetes mellitus without complications (principal); E66.01 Morbid (severe) obesity due to excess calories; Z68.43 Body mass index [BMI] 50.0-59.9, adult; F40.231 Fear of injections and transfusions; J45.40 Moderate persistent asthma, uncomplicated; D72.829 Elevated white blood cell count, unspecified; I10 Essential (primary) hypertension

== ENCOUNTER 2024-09-22 08:20 | Outpatient (AMB) | payer OTHER, SELFPAY ==
--- NOTE | 2024-09-22 10:35 | A.OFFPC_ITS ---
Intake Visit Reasons: lab review Allergies No Known Allergies Allergy (Verified 09/20/24 12:03) Medication List - Last Reconciled 09/22/24 by Krystle Ocasio MD albuterol sulfate 90 mcg/actuation 2 puffs inhalation Q4-6H PRN albuterol sulfate 0.63 mg (3 mL) inhalation QID PRN 30 days atorvastatin 20 mg PO DAILY 90 days budesonide-formoterol 80-4.5 mcg/actuation (Symbicort) 1 inh inhalation BID glipizide-metformin 5-500 mg 1 tab PO DAILY nebulizers Nebulizer with all supplies PNV,calcium 75-wkou-zymey acid 27 mg iron- 1 mg ( Vitamins Plus Low Iron) 1 tab PO DAILY 90 days Tobacco use date assessed: 05/06/24 Dental Screening Dental Screen Date: 05/06/24 HPI lab review HPI Details History - The patient is a 39-year-old female pr esenting with elevated hemoglobin A1c levels. - Elevated hemoglobin A1c level noted at 9.5%, compared to the desired target of 7% or below. - The patient's current medication regim en includes glipizide-metformin, taken only once daily. - No prior history of monitoring blood g lucose levels at home due to an aversion to finger pricks. Medical History: - History of diabetes mellitus type 2, m anaged with glipizide-metformin. Medications: - Glipizide-Metformin: Taken once daily for management of diabetes mellitus type 2. Social History: - Desire for future childbearing was men tioned, implying considerations for . Diagnostic Results: - Labs: Hemoglobin A1c result of 9.5%. Problem List - Diabetes Mellitus Type 2 - Poor glycemic control indicated by joyce bustillo hemoglobin A1c Patient Instructions - Increase glipizide-metformin dosage to twice daily: one tablet in the morning and the second 12 hours later. - Improve dietary habits and increase wa ter intake. - Continue to focus on better lifestyle and weight management. - [facility] and perform laboratory tests the day before. Review of Systems - General: No fever no chills - Neurological: No headaches no dizziness - Ear nose throat: No sore throat no hearing difficulty no ear pain - Cardiovascular: No syncope, no chest pain, no palpitations - Gastrointestinal: No nausea vomiting or diarrhea [facility] Medical History Obesity Contact dermatitis Hypertension, essential Surgical History No pertinent past surgical history Family History Father No problems noted. Mother Back injury Substance use disorder Maternal Grandfather No problems noted. Maternal Grandmother HTN (hypertension) Diabetes mellitus Paternal Grandfather No problems noted. Brother No problems noted. Brother No problems noted. Sister No problems noted. Sister No problems noted. Sister No problems noted. Social History Household Members: None Housing: Apartment Alcohol intake: current Alcohol intake frequency: holidays/special occasions only Patient Tobacco Use Status: Never used Tobacco e-Cigarette/Vaping Use: Never Used Second Hand Smoke Exposure: No Current occupational status: employed Current occupation: [employer] Sexual orientation: Straight/Heterosexual Gender identity: Female Cognitive needs: No Hearing needs: No Vision needs: No Questionnaire Thrive Questionnaire Date Thrive assessed: 09/20/24 BARRY-7 AMB Questionnaire BARRY-7 Date BARRY - 7 assessed: 09/20/24 Source: Developed by Drs. Rell Trivedi, Nalini Abel, Dilip Solo and colleagues, with an educational karson from [employer]. Physical exam (Primary Care) Tobacco/Smoking Status: Tobacco use Status Tobacco use date assessed 05/06/24 09/22/24 10:36 Patient Tobacco Use Status Never used Tobacco 09/22/24 10:36 e-Cigarette/Vaping Use Never Used 09/22/24 10:36 Thrive Assessment: Date of Thrive Assessment Date Thrive assessed 09/20/24 09/22/24 10:36 Telehealth Telehealth Telehealth Platform: [facility] Location of provider rendering services: practice address Location of patient: address on file Patient Identification confirmed using: Name, : Yes Telehealth method: video Patient verbally consented to treatment: Yes Patient verbally consented to billing insurance company: Yes Patient informed of any privacy concerns related to visit: Yes Minutes spent on Phone/Video with Pt.: 13 Coding Level of Care Code Tele Est Pt Level 3 (08392) Diagnoses 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 - Elevated hemoglobin A1c level noted at 9.5%, compared to the desired target of 7% or below. - The patient's current medication regimen includes glipizide-metformin, taken only once daily. - No prior history of monitoring blood glucose levels at home due to an aversion to finger pricks. Medical History: - History of diabetes mellitus type 2, managed with glipizide-metformin. Medications: - Glipizide-Metformin: Taken once daily for management of diabetes mellitus type 2. Social History: - Desire for future childbearing was mentioned, implying considerations for . Diagnostic Results: - Labs: Hemoglobin A1c result of 9.5%. Problem List - Diabetes Mellitus Type 2 - Poor glycemic control indicated by elevated hemoglobin A1c Patient Instructions - Increase glipizide-metformin dosage to twice daily: one tablet in the morning and the second 12 hours later. - Improve dietary habits and increase water intake. - Continue to focus on better lifestyle and weight management. - Return for follow-up appointment in December and perform laboratory tests the day before. Orders: Orders Complete Blood Count Auto Diff 3 Months D72.829 - Elevated white blood cell count, unspecified, E13.9 - Other specified diabetes mellitus without complications, I10 - Essential (primary) hypertension Comprehensive [place]. Panel Fast 3 Months D72.829 - Elevated white blood cell count, unspecified, E13.9 - Other specified diabetes mellitus without complications, I10 - Essential (primary) hypertension Lipid Panel 3 Months D72.829 - Elevated white blood cell count, unspecified, E13.9 - Other specified diabetes mellitus without complications, I10 - Essential (primary) hypertension Vitamin D 25-OH (D2 and D3) 3 Months D72.829 - Elevated white blood cell count, unspecified, E13.9 - Other specified diabetes mellitus without complications, I10 - Essential (primary) hypertension TSH reflex Free T4 3 Months D72.829 - Elevated white blood cell count, unspecified, E13.9 - Other specified diabetes mellitus without complications, I10 - Essential (primary) hypertension Hemoglobin A1c 3 Months D72.829 - Elevated white blood cell count, unspecified, E13.9 - Other specified diabetes mellitus without complications, I10 - Essential (primary) hypertension Microalbumin, Random (w Creat) 3 Months D72.829 - Elevated white blood cell count, unspecified, E13.9 - Other specified diabetes mellitus without complic ations, I10 - Essential (primary) hypertension Medications: Refilled glipizide-metformin 5-500 mg 1 tab PO DAILY 180 tabs 0RF E66.01 - Morbid (severe) obesity due to excess calories
== END 2024-09-22 12:04 | disposition home or self-care (01) ==
LOC: HO.HMCC 08:20
PROVIDERS: PCP Internal Medicine; Visit Provider Internal Medicine
DX: F40.231 Fear of injections and transfusions (principal); E13.9 Other specified diabetes mellitus without complications

== ENCOUNTER 2025-01-23 12:27 | Outpatient (REF) | payer OTHER, SELFPAY ==
[2025-01-23 16:06] LABS: MANUAL DIFF FLAG NO
[2025-01-23 16:23] LABS: Hematocrit 38.1 % (37.0-47.0); Hemoglobin 12.6 g/dl (12.0-16.0); Imm Gran Abs Auto 0.03 X10*3/uL (0.00-0.03); Imm Gran Pct Auto 0.3 % (0.0-0.4); Lymphocytes Absolute Auto 2.5 X10*3/uL (1.2-4.9); Mean Corpuscular HGB Conc 33.1 g/dl (31.0-35.0); Mean Corpuscular Hemoglobin 26.9 pg (27.0-33.0); Mean Corpuscular Volume 81.4 fL (80.0-98.0); NRBC Abs Auto 0.000 X10*3/uL (0.0-0.012); NRBC Pct Auto 0.0 /100WBC (0.0-0.2); Platelet Count 188 X10*3/uL (160-400); Red Blood Count 4.68 X10*6/uL (4.20-5.50); White Blood Count 9.1 X10*3/uL (4.8-10.8)
[2025-01-23 17:06] LABS: Anion Gap 13 (12-20)
[2025-01-23 17:11] LABS: Alanine Aminotransferase 20 U/L (0-31); Albumin Level 4.0 g/dL (3.5-5.0); Alkaline Phosphatase 89 U/L (39-117); Aspartate Amino Transferase 25 U/L (5-31); Blood Urea Nitrogen 10 mg/dL (9-16); Calcium 9.2 mg/dL (8.4-10.2); Carbon Dioxide 25 mmol/L (22-29); Chloride 103 mmol/L (96-108); Cholesterol 167 mg/dL (<200); Estimated Glomerular Filt Rate > 60; HDL Cholesterol 49 mg/dL (>40); Potassium 3.7 mmol/L (3.3-5.1); Sodium 137 mmol/L (135-145); Total Protein 7.4 g/dL (6.5-8.0); Triglycerides 136 mg/dL (<150)
[2025-01-27 13:24] LABS: Vitamin D 25-OH, D2 <4 ng/mL; Vitamin D 25-OH, D3 24 ng/mL; Vitamin D 25-OH, Total 24 ng/mL (30-100)
== END 2025-01-23 12:28 | disposition home or self-care (01) ==
LOC: HO.HMGCLDS 12:27
PROVIDERS: PCP Internal Medicine; Visit Provider Internal Medicine
DX: I10 Essential (primary) hypertension (principal); D72.829 Elevated white blood cell count, unspecified; E11.8 Type 2 diabetes mellitus with unspecified complications
CPT/HCPCS: 36415; 80053; 80061; 82043; 82306; 82570; 83036; 84443; 85025

== ENCOUNTER 2025-01-24 12:06 | Outpatient (AMB) | payer OTHER, SELFPAY ==
[2025-01-24 12:10] VITALS: BP 132/86; PULSE 91; O2SAT 98; BMI 58.5
--- NOTE | 2025-01-24 12:10 | MHC.PC.OV ---
Vital Signs 01/24/25 12:10 Height 5 ft 3 in Weight 330 lb BMI 58.5 BP 132/86 Blood Pressure Location Lt brachial Position Sitting Pulse 91 Pulse Source Pulse Oximeter Pulse Oximetry (%) 98 Intake Visit Reasons: 4 months f/up Allergies No Known Allergies Allergy (Verified 01/24/25 12:14) Medication List - Last Reconciled 01/24/25 by Krystle Ocasio MD albuterol sulfate 0.63 mg (3 mL) inhalation QID PRN 30 days albuterol sulfate 90 mcg/actuation 2 puffs inhalation Q4-6H PRN atorvastatin 20 mg PO DAILY 90 days budesonide-formoterol 80-4.5 mcg/actuation (Symbicort) 1 inh inhalation BID glipizide-metformin 5-500 mg 1 tab PO BID 90 days nebulizers Nebulizer with all supplies PNV,calcium 58-fjiv-ngxui acid 27 mg iron- 1 mg ( Vitamins Plus Low Iron) 1 tab PO DAILY 90 days Tobacco use date assessed: 05/06/24 Dental Screening Dental Screen Date: 05/06/24 HPI HPI Comments History of Present Illness Details History The patient is a 39 year old individual presenting for a follow-up visit to review recent lab results and address an acute asthma exacerbation. Asthma: - The patient reports an asthma flare-up, which started last week, triggered by the cold weather. - The patient has been using the nebulizer, emergency inhaler, and daily inhaler (Symbicort) more frequently. - The relief provided by the emergency inhaler is lasting for shorter durations. 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 Type 2 diabetes mellitus: - The patient is taking a glipizide-metformin 5-500 combination tablet twice daily. - Recent labs show an A1c of 8.8, which is an improvement from 9.5 in August, but still above the target of less than 7. - The patient reports tolerating the medication well, with some initial mild abdominal discomfort that has since resolved, and denies experiencing diarrhea. Hypercholesterolemia: - The patient takes atorvastatin 20 mg for cholesterol management. - Recent lab results indicate that the patient's cholesterol is well-controlled. Preconception counseling: - The patient and the patient's fianc?? are actively trying to conceive. - The patient has been actively trying for the past two months and has started tracking ovulation with an application. Medical History: - Asthma - Type 2 diabetes mellitus - Hypercholesterolemia - Allergies - morbid obesity Medications: - Atorvastatin 20 mg for hypercholesterolemia - Glipizide-metformin 5-500 mg, one tablet twice daily for type 2 diabetes mellitus - Symbicort for daily asthma control - Emergency inhaler as needed for asthma - Nebulizer as needed for asthma - Ydcp-vte-malvrmu allergy tablet, once daily - Vuns-qia-ldhjwoc allergy nasal spray Social History: - The patient is actively trying to conceive with the patient's fianc?? and has been for the past two months. - The patient is using an application to track ovulation. 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 [facility] Medical History Obesity Contact dermatitis Hypertension, essential Surgical History No pertinent past surgical history Family History Father No problems noted. Mother Back injury Substance use disorder Maternal Grandfather No problems noted. Maternal Grandmother HTN (hypertension) Diabetes mellitus Paternal Grandfather No problems noted. Brother No problems noted. Brother No problems noted. Sister No problems noted. Sister No problems noted. Sister No problems noted. 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 Sexual orientation: Straight/Heterosexual Gender identity: Female Cognitive needs: No Hearing needs: No Vision needs: No Questionnaire Thrive Questionnaire Date Thrive assessed: 03/12/24 I am a: Patient What is your living situation today?: I have a steady place to live Within the past 12 months, did the food you bought not last and you didn't have the money to get more?: Never true Within the past 12 months, did you worry whether your food would run out before you got money to buy more?: Sometimes True Do you have trouble paying for medicines?: No Do you have trouble getting transportation to medical appointments?: No Do you have trouble paying your heating and electricity bill?: No Do you have trouble taking care of your child, family member or friend?: No Do you have trouble with day-to-day activities such as bathing, preparing meals, shopping, managing finances, etc.?: No Are you currently unemployed and looking for a job?: No Are you interested in more education?: No Please select the resources that you would like help with: None Currently or been in a relationship where the following occur: No concerns reported THRIVE Score: 1 BARRY-7 AMB Questionnaire BARRY-7 Date BARRY - 7 assessed: 09/20/24 Source: Developed by Drs. Rell Trivedi, Nalini Abel, Dilip Solo and colleagues, with an educational karson from [email or web address]. Review of Systems Narrative Review of Systems General: No fever no chills neurological: No headaches no dizziness ear nose throat: No sore throat no hearing difficulty no ear pain cardiovascular: No syncope, no chest pain, no palpitations gastrointestinal: No nausea vomiting or diarrhea endocrine: No polyuria polydipsia no heat intolerance genitourinary: No dysuria skin: No new complaints Physical exam (Primary Care) Vital Signs: Last Vital Signs Pulse 91 01/24/25 12:10 BP 132/86 01/24/25 12:10 Pulse Ox 98 01/24/25 12:10 BMI result Body Mass Index 58.5 Tobacco/Smoking Status: Tobacco use Status Tobacco use date assessed 05/06/24 01/24/25 12:14 Patient Tobacco Use Status Never used Tobacco 01/24/25 12:14 e-Cigarette/Vaping Use Never Used 01/24/25 12:14 Thrive Assessment: Date of Thrive Assessment Date Thrive assessed 03/12/24 01/24/25 12:14 Currently or been in a relationship where the following occur: No concerns reported Narrative Diagnostic results - Vitals: Blood pressure was 132/86 mmHg. - Labs: - Hemoglobin A1c: 8.8% (previously 9.5% in August). - CBC: Normal, with no anemia. - Comprehensive Metabolic Panel: Electrolytes and kidney functions are normal. - Lipid Panel: Cholesterol is good. - TSH: Thyroid function is normal. - Vitamin D: Pending. Physical Exam general: No acute distress HEENT: No acute findings neck: Supple respiratory system: Able to talk in full sentences, slight wheeze at the end of inhalation cardiovascular: S1-S2 RRR gastrointestinal: No pain extremities: No new findings BOX OFFICE ATTENDANT: Alert awake oriented x3 motor sensory intact skin: Normal turgor Coding Level of Care Code Est Pt Level 4 (50678) Complex visit Add On G2211 Diagnoses Wheezing R06.2 Moderate persistent asthma without complication J45.40 Asthma complication type: uncomplicated Diabetes mellitus type 2 in obese E11.69; E66.9 Hypertension, essential I10 Morbid obesity due to excess calories E66.01 Assessment & Plan Assessment & Plan (1) Wheezing: Code(s): R06.2 - Wheezing Category: Medical (2) Asthma, moderate persistent: Code(s): J45.40 - Moderate persistent asthma, uncomplicated Category: Medical Qualifiers: Asthma complication type: uncomplicated Qualified Code(s): J45.40 - Moderate persistent asthma, uncomplicated (3) Diabetes mellitus type 2 in obese: Code(s): E11.69 - Type 2 diabetes mellitus with other specified complication; E66.9 - Obesity, unspecified Category: Medical (4) Hypertension, essential: Code(s): I10 - Essential (primary) hypertension Category: Medical (5) Morbid obesity due to excess calories: Code(s): E66.01 - Morbid (severe) obesity due to excess calories Category: Medical Plan Plan - Asthma: A prescription for prednisone was sent to the pharmacy for the acute exacerbation. - Type 2 Diabetes Mellitus: The dosage of the glipizide/metformin combination medication will be increased to two tablets in the morning and one tablet at night to improve glycemic control. - The patient was advised to monitor for cramping and diarrhea with the increased dose and to report back if these side effects occur, as the medications may need to be . - Hypercholesterolemia: Continue current dose of atorvastatin. - Allergic Rhinitis: Continue rhpo-imq-scbvnhi nasal spray and an allergy tablet. Advised to ensure the allergy tablet is a long-acting, 24-hour formulation and does not contain a decongestant (no D ). - Preconception Counseling: The patient was advised to see a specialist if conception does not occur after one year of trying. - Health Maintenance: Advised to get an influenza vaccine from a pharmacy once the current asthma symptoms resolve. - Follow-up: The patient has a follow-up appointment scheduled in April for an annual physical exam. Lab orders have been placed for the next visit, and fasting is not required. Orders: Orders Hemoglobin A1c Today E11.69 - Type 2 diabetes mellitus with other specified complication, E66.01 - Morbid (severe) obesity due to excess calories, E66.9 - Obesity, unspecified, I10 - Essential (primary) hypertension, R07.89 - Other chest pain Comprehensive Met. Panel Today E11.69 - Type 2 diabetes mellitus with other specified complication, E66.01 - Morbid (severe) obesity due to excess calories, E66.9 - Obesity, unspecified, I10 - Essential (primary) hypertension, R07.89 - Other chest pain Medications: New prednisone 10 mg PO DAILY 5 tabs 0RF 5 days Changed From glipizide-metformin 5-500 mg 1 tab PO BID 90 days 180 tabs 0RF E66.01 - Morbid (severe) obesity due to excess calories To glipizide-metformin 5-500 mg 2 tabs in am and 1 in pm , orally 2 times a day; 270 tabs 0RF 90 days E66.01 - Morbid (severe) obesity due to excess calories
== END 2025-01-24 12:56 | disposition home or self-care (01) ==
LOC: HO.HMCC 12:06
PROVIDERS: PCP Internal Medicine; Visit Provider Internal Medicine
DX: J45.40 Moderate persistent asthma, uncomplicated (principal); E11.69 Type 2 diabetes mellitus with other specified complication; E66.9 Obesity, unspecified; I10 Essential (primary) hypertension; E66.01 Morbid (severe) obesity due to excess calories

== ENCOUNTER → 2025-01-24 12:06 | Outpatient (BNVA) | payer OTHER, SELFPAY | PROVIDERS: PCP Internal Medicine; Visit Provider Internal Medicine | DX: E11.69 Type 2 diabetes mellitus with other specified complication (principal); E78.00 Pure hypercholesterolemia, unspecified; J45.40 Moderate persistent asthma, uncomplicated; I10 Essential (primary) hypertension; E66.01 Morbid (severe) obesity due to excess calories; Z68.43 Body mass index [BMI] 50.0-59.9, adult | CPT/HCPCS: 99212 ==